=== PATIENT | female | born 1960 | race Asian ===

== ENCOUNTER 2025-04-14 20:59 | Inpatient (IN) | payer OTHER, SELFPAY ==
[2025-04-14 13:25] VITALS: BP 165/92
--- NOTE | 2025-04-14 14:35 | ED.GENMED ---
History of Present Illness
General
Chief Complaint: Cold/Flu/URI Symptoms
Source: patient and family (son at bedside)
Exam Limitations: none
Time Seen by Provider: 04/14/25 14:01
Nursing documentation reviewed up to this point in time: agreed with
History of Present Illness
History of Present Illness:
64 yo female with hx of kidney stones w lithotripsy, hysterectomy, cholecystectomy, partial thyroidectomy on Thyroxine, RA on Hydroxychloroquine, Gout on Allopurinol, and asthma uses Albuterol PRN and follow by [facility] [employer] [facility] at [facility].
Recent return from 3 weeks in [facility]. Return on 04/10. During stay developed sinus and chest congestion. Finished 5 days of Azomax 500 mg daily 2 weeks ago. No better on return home and went to [facility] ED same day, had neg Covid and Flu,
had CXR but was told it would be an 8 hour wait so she left.
Went to next day and put on Doxycycline 100 mg BID which she is still on and she is feeling no better.
Finally looked at 'my chart' and saw CXR results from 3 days ago and it said pneumonia.
Still with cough, felt feverish last night and vomited once last night. Otherwise appetite has been good and eating/drinking well.
Past History
Past History
ED Past Surgical History: Cholecystectomy, Gynecological, Orthopedic, Urological (lithotripsy) and Other (partial thyroidectomy)
Social History
Tobacco: Non-smoker
Alcohol: None
Personal:
Living: with family
Employment: Not employed
Review of Systems
Review of Systems
Allergies reviewed?: Yes
All Other Systems: ROS reviewed and negative except as documented in HPI and ROS
Constitutional: Reports fever; Denies chills
Respiratory: Reports cough and trouble breathing (mild)
Cardiac: Denies chest pain
ABD/GI: Denies abdominal pain, nausea, vomiting, diarrhea or anorexia
: Reports dysuria; Denies frequency, flank pain, incontinence, difficulty voiding or urgency
Musculoskeletal: Reports no symptoms
Skin: Reports no symptoms
Neurological: Reports no symptoms
Phy Exam
Physical Exam
Physical Exam:
GENERAL: No acute distress. A&Ox3.
CONSTITUTIONAL: Afebrile.
EYES: clear, conjunctivae normal
ENMT: moist mucus membranes, Pharynx nl
RESPIRATORY: Regular respirations, nonlabored, lungs with inspiratory crackles right side. No hypoxemia.
CARDIOVASCULAR: Regular rate and rhythm, no murmurs, no rubs.
GI: Soft, nontender, normal BS
MUSCULOSKELETAL: Moves with ease. Well perfused.
SKIN: Warm, dry, normal
PSYCH: Normal mood and affect. Well kept, interactive and appropriate
NEUROLOGIC: Awake, alert and oriented. No focal neurological deficits
Course
Orders/Labs/Results
Orders:
Orders
04/14/25 14:34
0.9% Sodium Chloride 1000 ml [Nss] 1,000 ml IV BOLUS
CR Chest - 2 Views Urgent
Comment:
Reason For Exam: cough, chest congestion
04/14/25 Dinner
Regular
04/14/25 15:02
Complete Blood Count/With Diff Urgent
Comprehensive Metabolic Panel Urgent
NT-proBNP Urgent
Comment: ADD ON
04/14/25 16:21
Add On- LAB Urgent
Tests Added?: Pro BNP
04/14/25 16:40
CT Chest With Iv Contrast Urgent
Comment:
Reason For Exam: Abnormal CXR
04/14/25 17:17
Urinalysis Reflex To Culture Urgent
Date Specimen was Collected: 04/14/25
Time Specimen was Collected: 17:15
04/14/25 19:52
Admit/Transfer Patient As Directed
Co-Sign Provider:
Level of Care: Inpatient admission
Assign to:: Medical/Surgical
Physician / Group: Adebamiro
Diagnosis: Pneumonia
Reason for Hospitalization: Pneumonia
Expected length of stay greater than two midnights?: Yes
ELOS- Estimated Length of Stay in days: 2
I certify the patient meets the requirements for IP care: Yes
04/14/25 19:53
PRN Pain Medication Management As Directed
May give lesser potent ordered pain med per pt: Yes
preference::
Protocol:: Medication orders for pain may be administered in a
manner that supports deferring to patient preference
when the pt is:
- Requesting an ordered lesser potent pain medication.
Least to most potent pain medications are defined
as: acetaminophen < NSAID < tramadol < opioids
(morphine, oxycodone, hydromorphone).
- Requesting a lesser dose of the same medication IF
ORDERED.
- Requesting a less intrusive route of administration
if both routes are prescribed by the provider (PO <
IV).
04/14/25 19:54
Code Status As Directed
Resuscitation Status: Full Code
04/14/25 20:13
Urinalysis Routine
04/14/25 20:24
COVID-19 Antigen Stat
Source: Nasal Swab
Influenza A+B Rapid Molecular Stat
KEO Source: Nasal Swab
Specimen Description:
04/14/25 20:26
Sputum Culture [Respiratory Culture/Gram Stain] Urgent
KEO Source: Sputum
Specimen Description:
Date Specimen was Collected: 04/14/25
Time Specimen was Collected: 20:24
04/14/25 22:09
Acid Fast Culture & Smear [Acid Fast Culture & Smear] DAILY
KEO Source: Sputum
Specimen Description:
Acetaminophen [Tylenol] 650 mg PO Q4HPRN PRN
Doxycycline Hyclate [Vibramycin] 100 mg 0.9% Sodium Chloride 250 ml [Nss] 250 ml IV Q12H
Guaifenesin/Dextromethorphan [Robitussin Dm] 5 ml PO Q4HPRN PRN
Hydroxychloroquine [Plaquenil] 200 mg PO BID
Ipratropium/Albuterol Sulfate [Duoneb] 3 ml INH R Q4HPRN PRN
Mag Hydrox/Al Hydrox/Simeth [Maalox] 15 ml PO QIDPRN PRN
Ondansetron Injectable [Zofran] 4 mg IV Q6HPRN PRN
Sodium Chloride 3% INH [Sodium Chloride 3% For Inhalation] 1 vial INH R Q4HPRN PRN
Induced Sputum [RESP] DAILY
Quantity: 1
04/14/25 22:09
PULMONARY CONSULT Routine
Consulting Provider: Luis Eduardo Foy
Was physician already notified: Yes
Legionella Urinary Antigen Routine
KEO Source: Urine
Specimen Description:
Respiratory Culture/Gram Stain Urgent
KEO Source: Sputum
Specimen Description:
Strep pneumoniae Antigen Routine
KEO Source: Urine
Specimen Description:
Activity As Directed
Activity Level: Out of Bed-Early Mobility
Intake/ Output As Directed
Frequency: Per unit guidelines
Precautions As Directed
Type of Precautions: Airborne
Vital Signs As Directed
Frequency: Per unit guidelines
Weight As Directed
Frequency: Once
Comment: on admission
Pulse Ox/cont/shift [RESP] Routine
Quantity: 1
Special Instructions: notify provider if SPO2 < 91%
DX Deep Vein Thrombosis Video Routine
04/15/25 Breakfast
NPO
Allow oral meds: Yes
Allow clear liquids: Sips of Clears
CESAR, IgG Reflex to HEp-2 [S] IN AM
Basic Metabolic Panel IN AM
CRP [C-Reactive Protein] IN AM
Complete Blood Count/No Diff IN AM
ESR [Erythrocyte Sed Rate] IN AM
HIV 4th Generation [HIV Combo] IN AM
Rheumatoid Factor [Rheumatoid Agglutinin] IN AM
04/15/25 08:00
Levothyroxine [Synthroid] 125 mcg PO DAILY
Multivitamin [Theragran] 1 tablet PO DAILY
04/15/25 18:00
Enoxaparin Sodium [Lovenox] 40 mg SC QPM
04/15/25 22:09
Acid Fast Culture & Smear [Acid Fast Culture & Smear] DAILY
KEO Source: Sputum
Specimen Description:
Induced Sputum [RESP] DAILY
Quantity: 1
04/16/25 22:09
Acid Fast Culture & Smear [Acid Fast Culture & Smear] DAILY
KEO Source: Sputum
Specimen Description:
Induced Sputum [RESP] DAILY
Quantity: 1
Abnormal Lab Results
04/14/25
15:02
Hgb 11.3 L g/dL
(12.0-16.0)
Hct 34.7 L %
(37.0-47.0)
MCV 79.4 L fL
(81.0-99.0)
MCH 25.9 L pg
(27.0-31.0)
MCHC 32.6 L g/dL
(33.0-37.0)
MPV 10.5 H fL
(7.4-10.4)
Chloride 110 H mmol/L
(98-107)
Glucose 109 H mg/dl
(70-99)
04/14/25 15:02
04/14/25 15:02
Vital Signs
Initial and Last Documented VS:
Initial Vital Signs
Temp Pulse Resp BP Pulse Ox
98.5 F 74 20 165/92 97
04/14/25 13:25 04/14/25 13:25 04/14/25 13:25 04/14/25 13:25 04/14/25 13:25
Last Documented Vital Signs
Temp Pulse Resp BP Pulse Ox
98.5 F 70 20 160/72 94
04/14/25 13:25 04/14/25 21:30 04/14/25 21:30 04/14/25 20:06 04/14/25 20:30
MDM/Problems Addressed
Differential Diagnosis Includes:
PNA, Interstitial pneumonitis, atypical infection
MDM/Problems Addressed:
64 yo female with hx of kidney stones w lithotripsy, hysterectomy, cholecystectomy, partial thyroidectomy on Thyroxine, RA on Hydroxychloroquine, Gout on Allopurinol, and asthma uses Albuterol PRN and follow by [employer] at [facility].
Recent return from 3 weeks in [facility]. Return on 04/10. During stay developed sinus and chest congestion. Finished 5 days of Azomax 500 mg daily 2 weeks ago. No better on return home and went to [facility] ED same day, had neg Covid and Flu,
had CXR but was told it would be an 8 hour wait so she left.
Went to next day and put on Doxycycline 100 mg BID which she is still on and she is feeling no better.
Finally looked at 'my chart' and saw CXR results from 3 days ago and it said pneumonia.
Still with cough, felt feverish last night and vomited once last night. Otherwise appetite has been good and eating/drinking well.
Temp 99.4 for this examiner, NAD
Lungs with crackles right side.
No hypoxemia
3:40 PM:
CBC normal
CMP normal
Chest x-ray: Radiology report read: IMPRESSION:
1. SEVERE NEARLY SYMMETRIC RETICULONODULAR INTERSTITIAL DISEASE throughout the upper and lower lobes of both lungs with associated mild bilateral lung volume loss. Diagnostic possibilities are (1) an INFLAMMATORY INTERSTITIAL PNEUMONITIS (possibly
sarcoidosis), (2) atypical infection, (3) connective tissue disease, (4) lymphangitic carcinomatosis, or (5) less likely interstitial pulmonary edema.
2. Mild cardiomegaly.
3. Moderate tortuosity of the thoracic aorta.
Will obtain Chest CT w IV contrast and admit.
7:00 PM:
Chest CT with IV contrast radiology report read
Hospitalist notified of admission.
*Pulse Oximetry
SaO2: 97
Oxygen Mode of Delivery: Room air
Patient hypoxic: no
*Critical Care Note
Total Time (30-74mins, 75-104mins- exclusive of procedures): Not Applicable
ED Attending Note
-
Portions of this chart may have been created with voice recognition software.� Occasional wrong word or��sound alike� substitutions may have occurred due to the inherent limitations of voice recognition software.
Discharge Plan
Departure
Patient Disposition: Admit
Date of Disposition: 04/14/25
Time of Disposition: 16:17
Admit to: Med/Surg
Presentation/result/management discussed w/ accepting MD/DO: Hospitalist
Condition: Fair
Discharge Problem:
Acute interstitial pneumonitis
Interventions
Interventions:
*Risk Screen - Suicide Last Done: 04/14/25 13:25
*General Assessment Last Done: 04/14/25 15:46
*Neglect/Abuse Screening Last Done: 04/14/25 13:25
*ED- Fall Risk Assessment Last Done: 04/14/25 16:45
*ED COVID-19 Vaccine History Last Done: 04/14/25 16:45
ED- Pulmonary Assessment Last Done: 04/14/25 16:45
[2025-04-14] MEDS: NSS 1000 IV (15:04)
[2025-04-14 15:14] LABS: % Basophils 0.5 % (0-2); % Eosinophils 3.2 % (0-6); % Immature Granulocytes 0.3 % (0-0.5); % Lymphocytes 36.3 % (20.5-51.1); % Monocytes 7.9 % (1.7-9.3); % Neutrophils 51.8 % (42.2-75.2); Absolute Eosinophils 0.2 10^3/uL (0-0.7); Absolute Lymphocytes 2.8 10^3/uL (1.2-3.4); Absolute Monocytes 0.6 10^3/uL (0.1-0.6); Absolute Neutrophils 3.9 10^3/uL (1.4-6.5); Hematocrit 34.7 % (37.0-47.0); Hemoglobin 11.3 g/dL (12.0-16.0); Mean Corp Hgb Conc. 32.6 g/dL (33.0-37.0); Mean Corpuscular Hgb 25.9 pg (27.0-31.0); Mean Corpuscular Volume 79.4 fL (81.0-99.0); Mean Platelet Volume 10.5 fL (7.4-10.4); Nucleated Red Blood Cells % 0 %; Platelet Count 290 10^3/uL (130-400); Red Blood Cell Count 4.37 10^6/uL (4.20-5.40); Red Cell Dist. Width 12.8 % (11.5-14.5); White Blood Cell Count 7.6 10^3/uL (4.8-10.8)
[2025-04-14 15:43] LABS: ALT (SGPT) 22 U/L (0-35); AST (SGOT) 32 U/L (14-36); Albumin 3.7 g/dl (3.5-5.0); Alkaline Phosphatase 71 U/L (38-126); Blood Urea Nitrogen 8 mg/dl (7-17); Calcium 8.7 mg/dl (8.4-10.2); Carbon Dioxide 25 mmol/L (22-30); Chloride 110 mmol/L (98-107); Glucose 109 mg/dl (70-99); Potassium 3.6 mmol/L (3.5-5.1); Sodium 140 mmol/L (135-145); Total Bilirubin 0.5 mg/dl (0.2-1.3); Total Protein 6.5 g/dl (6.3-8.2); eGFR > 60.00
[2025-04-14 17:11] LABS: NT-proBNP 73.9 pg/ml
[2025-04-14 17:25] LABS: Urine Albumin Negative (Neg - Trace); Urine Bilirubin Negative (Negative); Urine Character Clear (Clear); Urine Color Yellow; Urine Glucose Negative (Negative); Urine Ketone Negative (Negative); Urine Leukocyte Negative (Negative); Urine Nitrite Negative (Negative); Urine Occult Blood Negative (Negative); Urine Urobilinogen Negative (Neg - 1+); Urine pH 6.5 (5.0-9.0)
--- NOTE | 2025-04-14 19:28 | HPS.HSE ---
Family Physician
-
Family Physician: Manny Orellana
Chief Complaint
-
Cough and shortness of breath
History of Present Illness
This is a 64-year-old who has a past medical history significant for RA, hypothyroid, hypertension, gout, nephrolithiasis, chronic upper airway cough syndrome not previously specified (normal PFTs without obstructive or restrictive pattern in 2020)
who presents to the emergency department with ongoing cough syndrome that she developed after traveling to [facility] about 3 weeks ago.
Patient reported that she developed the illness about 1 week into stay and started [place] She reported that she was coughing, it was productive of whitish to brownish phlegm, associated with pleuritic chest discomfort. She reported
chills. She did not have documented fever. She denied having any sore throat or runny nose. She did state that there were multiple members of the gathering at the time that had similar symptoms. She denied any GI component. She took 5 days of
azithromycin while she was in [facility]. She said there was no improvement in her symptoms. She came back to [place] 7 days after completing the azithromycin and went to urgent care. She again was diagnosed with pneumonia urgent care and
was started on doxycycline yesterday. She says she did develop nausea and vomiting after taking the doxycycline. She has not had fever since she been here. She has not required supplemental oxygen. The family members will travel with her no
longer having any symptoms.
Patient denies any prior history of pneumonias, fungal infection, asthma or COPD. She does have rheumatoid arthritis for several years but has been well-controlled on Plaquenil. She denies any recent rash. She does have a chronic ankle effusions
bilaterally which is unchanged.
In the emergency department she was afebrile, blood pressure was 160/92 with a pulse rate of 69 and she was satting 96% on room air. Respiratory rate was 16.
CBC was unremarkable. Electrolytes BUN/creatinine were all normal.
Chest x-ray shows severe symmetric reticular�nodular interstitial disease throughout the upper and lower lobes of both lungs with associated mild bilateral lung volume loss. Diagnostic possibilities are (1) an INFLAMMATORY INTERSTITIAL PNEUMONITIS
(possibly sarcoidosis), (2) atypical infection, (3) connective tissue disease, (4) lymphangitic carcinomatosis, or (5) less likely interstitial pulmonary edema.
CT Chest
MODERATE to SEVERE INFLAMMATORY INTERSTITIAL PNEUMONITIS involving the periphery of both lungs in a symmetric distribution - possibly nonspecific interstitial pneumonitis (NSIP). Atypical infection or interstitial pulmonary edema are considered
unlikely.
2. Moderate subcarinal lymphadenopathy.
3. Chronic granulomatous disease infection.
4. Small hiatal hernia.
5. Previous left hemithyroidectomy.
Medical History
Past Medical History
Past Medical History: Reports GERD, HTN, Hypothyroidism and Other (Upper airway cough syndrome with otherwise not specified)
Additional Past Medical History:
Rheumatoid arthritis
Gout
Nephrolithiasis
Past Surgical History: Reports Cholecystectomy, Orthopedic (Knee replacement) and Other (Left John-thyroidectomy)
Social History
Tobacco: Non-smoker
Alcohol: None
Drug: None
Living: With Family
Employment: Not Employed
Family History
Family History: Not pertinent
Allergies / Home Medications
Allergies reflects when Allergies were last updated in [facility].
Home Medications with original date entered in [facility]
Allergy/Medication List:
Allergies
Allergy/AdvReac Type Severity Reaction Status Date / Time
No Known Allergies Allergy Unverified 04/14/25 13:25
Home Medications
acetaminophen 500 mg tablet (Tylenol Extra Strength) 500 mg PO BIDPRN PRN mild pain 04/14/25
ascorbic acid (vitamin C) 1,000 mg tablet (Vitamin C) 1,000 mg PO DAILY 04/14/25
benzonatate 100 mg capsule 100 mg PO TID PRN cough 04/14/25
cholecalciferol (vitamin D3) 125 mcg (5,000 unit) capsule 125 mcg PO DAILY 04/14/25
doxycycline hyclate 100 mg capsule 100 mg PO BID 04/14/25
hydroxychloroquine 200 mg tablet 200 mg PO BID 04/14/25
levothyroxine 125 mcg tablet 125 mcg PO DAILY 04/14/25
psyllium husk 1 tsp PO DAILYPRN PRN constipation 04/14/25
therapeutic multivitamin 1 tab PO DAILY 04/14/25
Review of Systems
-
History Source: Patient and Family
Constitutional: Reports No Symptoms
EENT: Reports No Symptoms
Respiratory: Reports Cough and Trouble Breathing; Denies Hemoptysis
Cardiac: Reports No Symptoms
Abdomen/GI: Reports No Symptoms
: Reports No Symptoms
Musculoskeletal: Reports No Symptoms
Skin: Reports No Symptoms
Neurological: Reports No Symptoms
Endocrine: Reports No Symptoms
Hematologic/Lymphatic: Reports No Symptoms
Psych: Reports No Symptoms
Physical Exam
Vital Signs
Vital Signs
Temp Pulse Resp BP Pulse Ox
98.5 F 69 16 165/92 96
04/14/25 13:25 04/14/25 15:15 04/14/25 15:15 04/14/25 13:25 04/14/25 15:15
Physical Exam
General: Well Developed, Well Nourished and No Apparent Distress
HEENT: NormoCephalic, Moist mucous membranes and Atraumatic
Respiratory: Clear
Cardiac: S1/S2 and Regular Rhythm; No Murmur or Rub
GI: Soft, Non Tender, Non Distended and Normal Bowel Sounds; No Organomegaly
Rectal: Deferred by Provider
Musculoskeletal: No Clubbing, No Cyanosis and No Edema
Skin: No Rash
Neuro: Nonfocal/grossly intact
Psych: Calm
Laboratory Results
-
04/14/25 15:02
04/14/25 15:02
Laboratory Results
Total Bilirubin 0.5 mg/dl (0.2-1.3) 04/14/25 15:02
AST 32 U/L (14-36) 04/14/25 15:02
ALT 22 U/L (0-35) 04/14/25 15:02
Alkaline Phosphatase 71 U/L (38-126) 04/14/25 15:02
Data Reviewed
-
Diagnostic Radiology: Image Personally Visualized and interpreted and Report Reviewed by me
CT Scan: Report Reviewed by me
Medical Tests (Nuc Med, Echo, EKG etc): Image Personally Visualized and interpreted
Old Records: Reviewed
Impression/Plan
-
IMPRESSION:
64 y.o female with h/o RA, hypothyroid, HTN presenting with approximately 2 1/2 weeks of cough syndrome productive of clear to brown phlegm w/o hemoptysis and associated with SOB. She fell ill while travelling in [facility] on pilgrimage with a
group who had multiple members affected. No fevers or chills. No improvement despite 5 days of azithromycin in [facility]. Started on doxycycline by urgent care yesterday. No fever, here, no leukocytosis CBC unremarkable. Labs otherwise
normal. Xray with a bilateral reticulonodular pattern concerning for interstitial pneumonitis.
PLAN:
Pneumonitis - Atypical pneumonia, vs interstitial pneumonitis. Patient has an apparent chronic pulmonary disease for which she has seen pulmonary in the past though she had no restrictive or obstructive disease at on PFTs at the time and was
diagnosed with a UACS/GERD. She has history of RA, possible thyroiditis s/p thyroidectomy suggestive of CTD. No particular findings c/w sarcoid. No history of exposures.
- admit to med/surg
- airborne isolation for now
- Induced sputum for AFB, possible bronchial wash for acid fast smear/culture, fungal stain per pulm
- HIV
- will check inflammatory panel including RF, CESAR, ESR, CRP
- continue with iv doxycycline for now
- supportive measures, no steroids for now
- pulmonary consult
RA
- continue plaquinel
- tests as above
Hypothyroid
- levothyroxine
DVT PPX - lovenox sq
Code status - Full Code
[2025-04-14 20:06] VITALS: BP 160/72
[2025-04-14 20:50] LABS: COVID-19 Antigen Negative (Negative)
[2025-04-14 22:22] VITALS: BP 133/79
[2025-04-14 22:23] VITALS: BMI 34.3
[2025-04-14] MEDS: PLAQUENIL 200 MG PO (22:26)
[2025-04-14] MEDS: VIBRAMYCIN 260 MG IV (22:26)
[2025-04-14] MEDS: ROBITUSSIN DM 5 ML PO (22:33)
[2025-04-15 06:00] VITALS: BMI 34.3
[2025-04-15] MEDS: SYNTHROID 125 MCG PO (06:10)
[2025-04-15 06:46] LABS: Hematocrit 36.2 % (37.0-47.0); Hemoglobin 11.9 g/dL (12.0-16.0); Mean Corp Hgb Conc. 32.9 g/dL (33.0-37.0); Mean Corpuscular Hgb 25.9 pg (27.0-31.0); Mean Corpuscular Volume 78.9 fL (81.0-99.0); Mean Platelet Volume 10.5 fL (7.4-10.4); Platelet Count 275 10^3/uL (130-400); Red Blood Cell Count 4.59 10^6/uL (4.20-5.40); White Blood Cell Count 6.4 10^3/uL (4.8-10.8)
[2025-04-15 06:55] LABS: Erythrocyte Sed Rate 62 mm/hour (0-20)
[2025-04-15 07:00] VITALS: BP 132/53
--- NOTE | 2025-04-15 07:00 | CON.PUL ---
Consultation
Consultation Request
Date/Time Consultation Requested: 04/14/2025
Date/Time Consultation Performed: 04/15/2025
Requesting Provider: Candie Mayes
Performing Provider: Cydney Romero
Reason for Consultation: Cough
Medical History
-
Chief Complaint: Cough, dyspnea
History of Present Illness:
Patient is a very pleasant 64-year-old female who presents to hospital for close to 3 weeks long respiratory illness. Patient was in [place] couple of weeks ago for [place], and developed runny nose sore throat and respiratory symptoms which
she also reports that her family members had as well. Others people seem to have improved however patient has persistent symptoms. She received a course of azithromycin without success. She was recently evaluated in urgent care and was started on
doxycycline and patient developed GI upset and nausea vomiting with it. She presented to the emergency room yesterday and had a chest x-ray performed followed by a CT chest which was suggestive of bilateral interstitial infiltrates suggestive of
NSIP versus atypical infection. Pulmonary embolism was ruled out. Pulmonary consult was requested for further input.
Patient reports subjective fever at home. Cough is productive mostly clear and occasionally vasquez-yellow expectoration. No reported hemoptysis. No reported pleuritic discomfort however patient feels that her ribs are sore from constant coughing.
There is no difference in severity of cough between day or night versus change in temperature lately. Patient reports feeling febrile at home. No reported night sweats or palpable lymphadenopathy. Patient does not report having had similar
episode of this severity in the past. Currently her rheumatoid arthritis does not seem to have exacerbation and she does not report any active joint swelling or pain. No reported rash. No odynophagia.
Social history. Patient has never smoked. She grew up in [place] and moved to [place] about 25 years ago. No reported known history of tuberculosis exposure. 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
many years ago, details not available. No reported marijuana, vaping, e-cigarettes or tobacco use.
Past Medical History
Past Medical History: Reports GERD, HTN, Hypothyroidism and Other (Upper airway cough syndrome with otherwise not specified)
Additional Past Medical History:
Rheumatoid arthritis
Gout
Nephrolithiasis
Past Surgical History: Reports Cholecystectomy, Orthopedic (Knee replacement) and Other (Left John-thyroidectomy)
Social History
Tobacco: Non-smoker
Alcohol: None
Drug: None
Living: With Family
Employment: Not Employed
Family History
Family History: Not pertinent
Allergies / Home Medications
Allergies reflects when Allergies were last updated in [facility].
Home Medications with original date entered in [facility]
Allergies / Home Medications
Allergies
Allergy/AdvReac Type Severity Reaction Status Date / Time
No Known Allergies Allergy Unverified 04/14/25 13:25
Home Medications
�Medication �Instructions �Recorded �Confirmed �Last Taken �Type
acetaminophen 500 mg tablet 500 mg PO BIDPRN PRN mild pain 04/14/25 04/14/25 04/13/25 History
(Tylenol Extra Strength)
ascorbic acid (vitamin C) 1,000 mg 1,000 mg PO DAILY 04/14/25 04/14/25 04/13/25 History
tablet (Vitamin C)
benzonatate 100 mg capsule 100 mg PO TID PRN cough 04/14/25 04/14/25 04/13/25 History
cholecalciferol (vitamin D3) 125 125 mcg PO DAILY 04/14/25 04/14/25 Unknown History
mcg (5,000 unit) capsule
doxycycline hyclate 100 mg capsule 100 mg PO BID 04/14/25 04/14/25 04/14/25 History
hydroxychloroquine 200 mg tablet 200 mg PO BID 04/14/25 04/14/25 04/14/25 History
levothyroxine 125 mcg tablet 125 mcg PO DAILY 04/14/25 04/14/25 04/14/25 History
psyllium husk 1 tsp PO DAILYPRN PRN constipation 04/14/25 04/14/25 2 Weeks Ago History
~03/31/25
therapeutic multivitamin 1 tab PO DAILY 04/14/25 04/14/25 Unknown History
Review of Systems
-
Hematologic/Lymphatic: Other (All 14 systems reviewed and negative except as stated above in the history of present illness.)
Vitals / Labs / Diagnostic Testing
Vital Signs
Temp Pulse Resp BP Pulse Ox
98.1 F 71 20 133/79 97
04/14/25 22:22 04/14/25 22:22 04/14/25 22:22 04/14/25 22:22 04/15/25 05:02
Lab Data
04/15/25 06:32
Microbiology
04/14/25 20:24 Nasal Swab Influenza Types A & B (COURT) - Final
Negative for Influenza A & B, NAAT
Negative results must be combined with clinical observations
and patient history.
Nucleic Acid Amplification test (NAAT)performed on the
[employer] NOW platform.
Diagnostic Testing:
Physical Exam
-
HEENT: Normocephalic
Cardiovascular: S1/S2
Respiratory: Clear and Other (Bilateral end expiratory rhonchi/minimal wheezing. Tends to cough on deep inspiration.)
GI: Soft
Neurology: Awake and Alert
General: Comfortable
Assessment
-
#1. Bilateral interstitial infiltrates concerning for atypical infection versus RA-ILD
- Bilateral groundglass opacities noted on imaging pattern suggestive of NSIP which typically tends to be related to connective tissue diseases, drug-induced, occasionally and atypical infections.
- Relative rapidity of symptoms and other family members being sick points more towards infectious etiology. Also reported low-grade fever at home.
- Continue doxycycline for now, follow-up on blood cultures, sputum cultures. WBC count is normal. No large area of consolidation noted. ID consultation for further recommendation regarding antimicrobials
- Await HIV, connective tissue disease panel including RA, CESAR. ESR elevated at 62, CRP elevated at 33.8. Urinalysis without any proteinuria or hematuria
- If infection is ruled out, we will consider immunosuppression for suspected underlying rheumatoid arthritis related ILD, NSIP. If workup stays negative, will consider bronchoscopy with BAL.
#3. Hyperactive airway disease
- Patient appears to have end expiratory rhonchi. Reports uses of albuterol at home and previous courses of prednisone.
- Suspect patient might have underlying hyperreactive airway disease related to acute infection versus inflammation
- Start DuoNeb 4 times daily scheduled, add budesonide twice a day. Hold off oral or IV steroids for now
- Continue doxycycline
#4. Mediastinal lymphadenopathy with history of latent tuberculosis
- Patient grew up in [place]. Does not report any known exposure to active tuberculosis
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
- The calcified lymphadenopathy noted is likely sequela of prior exposure. Patient does not seem to have any upper lobe disease typical for Mycobacterium.
- Also bilateral interstitial pattern is not typical for MTB
- Await disease recommendations. Await AFB.
#5. H/o RA
- Reportedly has been on Plaquenil lately and has required short courses of prednisone many times in the past due to flare which typically has joint involvement.
- No known history of RA ILD however I do not have any previous imaging to compare if some of these changes are longstanding versus acute
- As outpatient, patient will need pulmonary function testing, 6-minute walk test etc. once she recovers from acute illness
- If infectious workup stays negative, will start patient on steroids for suspected RA ILD
Other medical diagnoses:
- Hypothyroidism
- HTN
- GERD
- H/o upper airway cough syndrome
Total time spent on this consultation/encounter ___82_ minutes which includes review of history, physical exam, medications, laboratory data, personal review of imaging, extensive review of outpatient records, discussion with care team and
respiratory therapy.
Data:
CT Chest 03/2025: 1. MODERATE to SEVERE INFLAMMATORY INTERSTITIAL PNEUMONITIS involving the periphery of both lungs in a symmetric distribution - possibly nonspecific interstitial pneumonitis (NSIP). Atypical infection or interstitial pulmonary
edema are considered unlikely.
2. Moderate subcarinal lymphadenopathy.
3. Chronic granulomatous disease infection.
4. Small hiatal hernia.
5. Previous left hemithyroidectomy.
[2025-04-15 07:08] LABS: Blood Urea Nitrogen 5 mg/dl (7-17); Calcium 8.5 mg/dl (8.4-10.2); Carbon Dioxide 30 mmol/L (22-30); Chloride 109 mmol/L (98-107); Estimated Creatinine Clearance 96 ml/min; Glucose 105 mg/dl (70-99); Potassium 3.4 mmol/L (3.5-5.1); Sodium 143 mmol/L (135-145); eGFR > 60.00
[2025-04-15] MEDS: THERAGRAN 1 TABLET PO (09:02)
[2025-04-15] MEDS: PLAQUENIL 200 MG PO ×2 (09:02→21:00)
[2025-04-15] MEDS: VIBRAMYCIN 260 MG IV (09:02)
[2025-04-15] MEDS: KCL 40 MEQ PO (09:04)
[2025-04-15 09:18] LABS: HIV Combo Negative (Negative)
--- NOTE | 2025-04-15 11:48 | W.PN.HOSP.TC ---
Today's Communication/Plan
-
Assessment / Plan
Assessment / Plan
NAD
Scleral Anicteric
MMM
No JVD
CTABL
RRR, S1/S2
Soft, NT, ND, BS+
Warm, Dry
AAOx3
Calm
Pneumonitis unclear if there is a infectious component however concern for likely ILD
For now continue doxycycline
Provide DuoNeb
Follow-up on sputum culture
Follow-up on AFB
Pulmonary following
Can consider bronc with BAL plus minus EBUS
Hypothyroidism
Continue levothyroxine
RA
Continue Plaquenil
Anticipated Discharge: > 48 hours
Subjective/Interval History
-
Date of Service: April 15, 2025
Seen and examined. No new complaints. No acute overnight events.
Continues to have a cough
Objective Data
-
Labs:
Laboratory Results
04/15/25
06:32
WBC 6.4
Hgb 11.9 L
Hct 36.2 L
Plt Count 275
Sodium 143
Potassium 3.4 L
Chloride 109 H
Carbon Dioxide 30
BUN 5 L
Creatinine 0.6
Glucose 105 H
Calcium 8.5
Vital Signs:
Vital Signs
Temp Pulse Resp BP Pulse Ox
98.5 F 66 16 132/53 96
04/15/25 07:00 04/15/25 07:00 04/15/25 07:00 04/15/25 07:00 04/15/25 10:00
I&O
04/14/25 04/15/25 04/16/25
06:59 06:59 06:59
Intake Total 240 / 240
Balance 240 / 240
[2025-04-15 13:06] LABS: Urine Albumin Negative (Neg - Trace); Urine Bilirubin Negative (Negative); Urine Character Clear (Clear); Urine Color Yellow; Urine Glucose Negative (Negative); Urine Ketone Negative (Negative); Urine Leukocyte Negative (Negative); Urine Nitrite Negative (Negative); Urine Occult Blood Negative (Negative); Urine Urobilinogen Negative (Neg - 1+)
--- NOTE | 2025-04-15 13:47 | CM ---
Initial assessment completed with patient with in room. Patient lives with her and son in a 2 story home plus basement, B/B on 1st floor, 1 step to enter. 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
distances- maneuvers. Patient has a SPC, RW and wheelchair from previous knee surgeries. No in-home services. No HC-POA. Received consult for AD information. Offered and declined. PCP is Dr. Manny Orellana. Pharmacy is [facility] in [facility]
[place]. Discharge POC: Home w no needs vs home with HH RN.
--- NOTE | 2025-04-15 14:58 | CON.ID ---
Consultation
-
Date/Time Consultation Requested: April 15, 2025 0802
Date/Time Consultation Performed: April 15, 2025 1500
Requesting Provider: Dr. Cydney Romero
Performing Provider: Dr. Maryann Romero
Reason for Consultation: Cough, recent travel
Chief Complaint / Past History
Chief Complaint
Cough
History of Present Illness
64-year-old female with history of RA on Plaquenil, history of chronic intermittent upper airway cough syndrome NOS who presented to the ER April 14 due to 1 and half week history of cough. She and her family recently traveled to [facility] [place] for pilgrimage 3 weeks ago. She was there for 2 weeks. There were millions of people there. Pilgrimage took place both indoors and outdoors. She reports not wearing a mask consistently. She did receive her meningococcal and
pneumococcal vaccine prior to travel. She spent the whole 2 weeks in prayer. She did not go sightseeing. No mosquito nor insect exposure. This is her first pilgrimage trip. Everybody doing well in the beginning of the [place]. However 1-1/2 weeks
later she and multiple people started coughing. Cough productive of yellowish-green sputum. She received 5 days of azithromycin. She did not improve. She reports that her section of the [place] consisted of people from the [place], [place], and [place].
During her flight back to the , she had significant sinus pressure, rhinorrhea with clear output, and headache. She reports subjective fevers and chills. Positive shortness of breath. Mild myalgias. No nausea vomit abdominal pain. No
diarrhea. Her rheumatoid arthritis is stable without flare. Her family members symptoms resolved. Patient continues to have persistent cough. She went to urgent care on April 13 and was prescribed doxycycline. However she developed nausea and
vomiting after taking the doxycycline. She therefore came to the ER yesterday. Afebrile so far. White count normal. LFTs normal. BNP normal.UA negative. SARS negative. Flu negative. She is unable to produce sputum. Sputum specimen submitted
contaminated with oral luis. She is currently on IV doxycycline without relief. She is originally from [facility] and came [place] the [place] 25 years ago. She reports initial PPD was negative upon arrival. 10 years ago her PPD converted to positive and
she was treated with 4 to 6 months for latent tuberculosis. Last travel back to [facility] was 2 years ago. She denies night sweats or weight loss.
Past History
Additional Past Medical History:
Rheumatoid arthritis on Plaquenil
Hypertension
Chronic upper airway cough syndrome NOS
Gout
Hypothyroidism
Nephrolithiasis
Latent TB treated x 4- 6 months 2014
Thyroidectomy
Cholecystectomy
Knee replacement
Allergy History:
No Known Allergies Allergy (Unverified 04/14/25 13:25)
Medications Reviewed: Yes
Current Antibiotics:
Doxycycline
Social History
Tobacco: Non-Smoker
Alcohol: None
Drug: None
Living: With Family
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
Review of Systems
Review of Systems
General: Fever, Chills and Change in Appetite
HEENT: Negative Sinus Problems or Headache
Respiratory: Dyspnea and Cough; Negative Hemoptysis
Genital / Urological: Negative Dysuria or Flank Pain
Endocrine: Weakness
Musculoskeletal: Negative Joint Pain
Skin / Hair / Nails: Negative Rash
Neurological: Negative Dizziness
All systems: All other systems were reviewed and were negative
Vital Signs
Temp Pulse Resp BP Pulse Ox
98.5 F 66 16 132/53 96
04/15/25 07:00 04/15/25 07:00 04/15/25 07:00 04/15/25 07:00 04/15/25 10:00
Physical Exam
Physical Exam
Constitutional: No Acute Distress and Comfortable
Head: Other (No frontal or max or sinus tenderness)
Eyes: No Conjunctival Hemorrhage and Sclera Anicteric
Pharynx: Benign
Cardiovascular: Regular Rate and S1/S2
Pulmonary: Clear
Gastrointestinal: Soft, Non Tender, Non Distended and Normal Bowel Sounds
Genito-Urinary: Negative CVA Tenderness
Extremities: Negative Edema
Musculoskeletal: Negative Joint Effusion or Spinal Tenderness
Skin: Negative Rash
Neurological: AO x 3
Lab / Diagnostic Study Results
04/15/25 06:32
04/15/25 06:32
Abs Immat Gran (auto) 0.0 10^3/uL (0-0.05) 04/14/25 15:02
Absolute Neuts (auto) 3.9 10^3/uL (1.4-6.5) 04/14/25 15:02
Absolute Lymphs (auto) 2.8 10^3/uL (1.2-3.4) 04/14/25 15:02
Absolute Monos (auto) 0.6 10^3/uL (0.1-0.6) 04/14/25 15:02
Absolute Basos (auto) 0.0 10^3/uL (0-0.2) 04/14/25 15:02
Immature Gran % 0.3 % (0-0.5) 04/14/25 15:02
Neutrophils % 51.8 % (42.2-75.2) 04/14/25 15:02
Lymphocytes % 36.3 % (20.5-51.1) 04/14/25 15:02
Monocytes % 7.9 % (1.7-9.3) 04/14/25 15:02
Eosinophils % 3.2 % (0-6) 04/14/25 15:02
Basophils % 0.5 % (0-2) 04/14/25 15:02
ESR 62 mm/hour (0-20) H 04/15/25 06:32
C-Reactive Protein 33.80 mg/L (0.0-10.00) H 04/15/25 06:32
Microbiology Results
Micro:
04/14/25 12:40 Respiratory Culture - Pending
Sputum Gram Stain - Preliminary
04/15/25 13:49 Respiratory Virus Culture - Pending
Nasalpharynx
04/14/25 20:26 Respiratory Culture - Final
Sputum Gram Stain - Final
04/14/25 20:24 Influenza Types A & B (COURT) - Final
Nasal Swab Negative for Influenza A & B, NAAT
Negative results must be combined with clinical observations
and patient history.
Nucleic Acid Amplification test (NAAT)performed on the
[employer] NOW platform.
Chest CT: MODERATE to SEVERE INFLAMMATORY INTERSTITIAL PNEUMONITIS involving the periphery of both lungs in a symmetric distribution - possibly nonspecific interstitial pneumonitis (NSIP). Atypical infection or interstitial pulmonary edema
are considered unlikely.mModerate subcarinal lymphadenopathy. Chronic granulomatous disease infection.
04/14/25 CXR: SEVERE NEARLY SYMMETRIC RETICULONODULAR INTERSTITIAL DISEASE throughout the upper and lower lobes of both lungs with associated mild bilateral lung volume loss. Diagnostic possibilities are (1) an INFLAMMATORY INTERSTITIAL PNEUMONITIS
(possibly sarcoidosis), (2) atypical infection, (3) connective tissue disease, (4) lymphangitic carcinomatosis, or (5) less likely interstitial pulmonary edema.
Assessment / Plan
# Mod to severe interstitial pneumonitis b/l lungs peripherally
# Cough x 1.5 weeks, subjected fevers
# Recent travel to [facility] for Hajj 3 weeks ago (2 week stay)
- MERS CoV (middle-east resp syndrome) is high in the differential dx given recent pilgrimage in [facility].
[id number] transmission can occur.
Monitor temps.
Testing for MERS CoV PCR (from DENTAL INSTRUMENT MAKER/lower resp tract) is not available in our health system.
If no source to explain her respiratory symptoms and chest CT findings, I will discuss case with CDC for send out testing. May need bronch.
- Continue airborne precaution for now.
- COVID/FLU neg.
- HIV screen negative.
- Follow repeat sputum culture.
- Ordered respiratory viral PCR panel.
- Start empiric meropenem. DC doxycycline.
- Check procalcitonin level in a.m. If negative DC antibiotic.
- Follow clinically
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
Rheumatoid arthritis on Plaquenil
Hypertension
Chronic upper airway cough syndrome NOS
Gout
Hypothyroidism
Nephrolithiasis
Latent TB treated x 4- 6 months 2014
Thyroidectomy
Cholecystectomy
Knee replacement
Care Review
Plan reviewed with: Physician (Dr. Romero)
[2025-04-15 15:00] VITALS: BP 134/62
[2025-04-15] MEDS: DUONEB 3 ML INH ×2 (15:29→19:48)
[2025-04-15] MEDS: STERILE WATER FOR INJECTION 10 ML IV ×2 (17:18→23:24)
[2025-04-15] MEDS: LOVENOX 40 MG SC (17:46)
[2025-04-15] MEDS: MERREM 500 MG IV (17:47)
[2025-04-15] MEDS: MERREM IV (17:47)
[2025-04-15] MEDS: ROBITUSSIN DM 5 ML PO ×2 (17:48→21:55)
[2025-04-15] MEDS: PULMICORT 0.5 MG INH (19:48)
[2025-04-15] MEDS: TYLENOL 650 MG PO (21:44)
[2025-04-15 23:20] VITALS: BP 110/40
[2025-04-16] MEDS: MERREM 500 MG IV ×2 (05:14→06:55)
[2025-04-16] MEDS: STERILE WATER FOR INJECTION 10 ML IV (05:15)
[2025-04-16] MEDS: SYNTHROID 125 MCG PO (05:15)
[2025-04-16 06:12] LABS: Procalcitonin < 0.05 ng/ml (0.0-0.25)
[2025-04-16 07:05] VITALS: BP 133/65
[2025-04-16] MEDS: PULMICORT 0.5 MG INH ×2 (08:23→18:19)
[2025-04-16] MEDS: DUONEB 3 ML INH ×4 (08:23→18:19)
[2025-04-16] MEDS: THERAGRAN 1 TABLET PO (09:07)
[2025-04-16] MEDS: PLAQUENIL 200 MG PO ×2 (09:07→20:10)
--- NOTE | 2025-04-16 11:36 | W.PN.HOSP.TC ---
Today's Communication/Plan
-
Assessment / Plan
Assessment / Plan
NAD
Scleral Anicteric
MMM
No JVD
CTABL
RRR, S1/S2
Soft, NT, ND, BS+
Warm, Dry
AAOx3
Calm
Pneumonitis unclear if there is a infectious component however concern for likely ILD
ID dc'ed doxy.
ID started Starr
Procal ordered, if ne then DC atb
Provide DuoNeb
Follow-up on sputum culture
Follow-up on AFB
Airborne precautions
Extended viral panel pending
Pulmonary following
Can consider bronc with BAL plus minus EBUS
HIV neg
Hypothyroidism
Continue levothyroxine
RA
Continue Plaquenil
Anticipated Discharge: > 48 hours
Subjective/Interval History
-
Date of Service: April 16, 2025
seen and examined. no new complaints. no acute ovenriht events
feeling better
Objective Data
-
Vital Signs:
Vital Signs
Temp Pulse Resp BP Pulse Ox
97.8 F 76 16 133/65 98
04/16/25 07:05 04/16/25 11:30 04/16/25 11:30 04/16/25 07:05 04/16/25 11:30
I&O
04/15/25 04/16/25 04/17/25
06:59 06:59 06:59
Intake Total 240 / 240 880 / 880
Balance 240 / 240 880 / 880
--- NOTE | 2025-04-16 11:38 | W.PN.ID1 ---
Addendum entered and electronically signed by Maryann Romero MD 04/16/25 14:45:
DC meropenem.
Original Note:
Date of Service
Date of Service: April 16, 2025
Today's Communication
Observe off abx.
Await lab studies.
Assessment / Plan
# Mod to severe interstitial pneumonitis b/l lungs peripherally
# Cough x 1.5 weeks, subjected fevers
# Recent travel to [facility] for Hajj 3 weeks ago (2 week stay)
- MERS CoV (middle-east resp syndrome) is high in the differential dx given recent pilgrimage in [facility].
Hefhdn-er-[id number] transmission can occur.
Monitor temps.
Testing for MERS CoV PCR (from GRANITE SANDBLASTER APPRENTICE/lower resp tract) is not available in our health system.
If no source to explain her respiratory symptoms and chest CT findings, I will discuss case with CDC for send out testing. May need bronch.
- Continue airborne precaution for now.
- COVID/FLU neg.
- HIV screen negative.
- Procalcitonin <0.05. DC meropenem.
- Follow repeat sputum culture pending
-Sputum AFB pending (doubt TB)
- Respiratory viral PCR panel pending
- Start empiric meropenem. DC doxycycline.
- Follow clinically
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
Rheumatoid arthritis on Plaquenil
Hypertension
Chronic upper airway cough syndrome NOS
Gout
Hypothyroidism
Nephrolithiasis
Latent TB treated x 4- 6 months 2015
Thyroidectomy
Cholecystectomy
Knee replacement
Chief Complaint
-: Pneumonia
Subjective / Review of Systems
Cough a little better.
Has FOWLER's.
No further N/V.
Vital Signs / Physical Exam
Vital Signs
Vital Signs
Temp Pulse Resp BP Pulse Ox
97.8 F 76 16 133/65 98
04/16/25 07:05 04/16/25 11:30 04/16/25 11:30 04/16/25 07:05 04/16/25 11:30
Physical Exam
Constitutional: No Acute Distress
Cardiovascular: Regular Rate and S1/S2
Pulmonary: Clear
Gastrointestinal: Soft, Non Tender, Non Distended and Normal Bowel Sounds
Extremities: Negative Edema
Neurological: AO x 3
Objective Data
Lab Data
Lab Results
04/15/25 06:32
04/15/25 06:32
ESR 62 mm/hour (0-20) H 04/15/25 06:32
Estimated Creat Clear 96 ml/min 04/15/25 06:32
Total Bilirubin 0.5 mg/dl (0.2-1.3) 04/14/25 15:02
AST 32 U/L (14-36) 04/14/25 15:02
ALT 22 U/L (0-35) 04/14/25 15:02
Alkaline Phosphatase 71 U/L (38-126) 04/14/25 15:02
C-Reactive Protein 33.80 mg/L (0.0-10.00) H 04/15/25 06:32
Most recent labs reviewed.
Micro Results:
04/14/25 12:40 Respiratory Culture - Preliminary
Sputum Gram Stain - Preliminary
04/16/25 08:45 Influenza Type A (PCR) - Pending
Nasalpharynx Influenza Type A (H1) (PCR) - Pending
Influenza Type A (H3) (PCR) - Pending
Influenza Type B (PCR) - Pending
Resp Syncytial Virus Type A (PCR) - Pending
Resp Syncytial Virus Type B (PCR) - Pending
Adenovirus DNA (PCR) - Pending
Human Metapneumovirus (PCR) - Pending
Parainfluenza Virus Type 1 (PCR) - Pending
Parainfluenza Virus Type 2 (PCR) - Pending
Parainfluenza Virus Type 3 (PCR) - Pending
Parainfluenza Virus Type 4 - Pending
Rhinovirus (PCR) - Pending
04/15/25 21:41 Acid Fast Bacilli Smear - Pending
Sputum Acid Fast Bacilli Culture - Pending
04/15/25 13:49 Respiratory Virus Culture - Pending
Nasalpharynx
04/14/25 20:26 Respiratory Culture - Final
Sputum Gram Stain - Final
04/14/25 20:24 Influenza Types A & B (COURT) - Final
Nasal Swab Negative for Influenza A & B, NAAT
Negative results must be combined with clinical observations
and patient history.
Nucleic Acid Amplification test (NAAT)performed on the
[employer] platform.
Chest CT: MODERATE to SEVERE INFLAMMATORY INTERSTITIAL PNEUMONITIS involving the periphery of both lungs in a symmetric distribution - possibly nonspecific interstitial pneumonitis (NSIP). Atypical infection or interstitial pulmonary edema
are considered unlikely.mModerate subcarinal lymphadenopathy. Chronic granulomatous disease infection.
04/14/25 CXR: SEVERE NEARLY SYMMETRIC RETICULONODULAR INTERSTITIAL DISEASE throughout the upper and lower lobes of both lungs with associated mild bilateral lung volume loss. Diagnostic possibilities are (1) an INFLAMMATORY INTERSTITIAL PNEUMONITIS
(possibly sarcoidosis), (2) atypical infection, (3) connective tissue disease, (4) lymphangitic carcinomatosis, or (5) less likely interstitial pulmonary edema.
[2025-04-16] MEDS: ROBITUSSIN DM 5 ML PO ×2 (14:40→22:10)
[2025-04-16 15:00] VITALS: BP 137/74
--- NOTE | 2025-04-16 15:11 | W.PN.PUL3 ---
Today's Communication / Plan
-
- Solumedrol 60 IV x1 then start Prednisone 40 mg daily.
Assessment
-
#1. Bilateral interstitial infiltrates concerning for atypical infection versus RA-ILD
- Bilateral groundglass opacities noted on imaging pattern suggestive of NSIP which typically tends to be related to connective tissue diseases, drug-induced, occasionally and atypical infections.
- Relative rapidity of symptoms and other family members being sick points more towards infectious etiology. Also reported low-grade fever at home.
- Procalcitonin negative, off antibiotics now. Follow-up on blood cultures, sputum cultures. WBC count is normal. No large area of consolidation noted. ID consultation for further recommendation regarding antimicrobials
- Await HIV, connective tissue disease panel including RA, CESAR. ESR elevated at 62, CRP elevated at 33.8. Urinalysis without any proteinuria or hematuria
- f/u CXR is unchanged.
- Await infectious work up.
#3. Hyperactive airway disease
- Patient appears to have end expiratory rhonchi. Reports uses of albuterol at home and previous courses of prednisone.
- Suspect patient might have underlying hyperreactive airway disease related to acute infection versus inflammation
- Started DuoNeb 4 times daily scheduled, added budesonide twice a day with benefit. Slept better at night.
- Start steroids for hyperactive airway disease/Asthmatic bronchitis
#4. Mediastinal lymphadenopathy with history of latent tuberculosis
- Patient grew up in [place]. Does not report any known exposure to active tuberculosis
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
- The calcified lymphadenopathy noted is likely sequela of prior exposure. Patient does not seem to have any upper lobe disease typical for Mycobacterium.
- Also bilateral interstitial pattern is not typical for MTB
- Await disease recommendations. Await AFB.
#5. H/o RA
- Reportedly has been on Plaquenil lately and has required short courses of prednisone many times in the past due to flare which typically has joint involvement.
- No known history of RA ILD however I do not have any previous imaging to compare if some of these changes are longstanding versus acute
- As outpatient, patient will need pulmonary function testing, 6-minute walk test etc. once she recovers from acute illness
Other medical diagnoses:
- Hypothyroidism
- HTN
- GERD
- H/o upper airway cough syndrome
Total time spent on this consultation/encounter ___42_ minutes which includes review of history, physical exam, medications, laboratory data, personal review of imaging, extensive review of outpatient records, discussion with care team and
respiratory therapy.
Data:
CT Chest 03/2025: 1. MODERATE to SEVERE INFLAMMATORY INTERSTITIAL PNEUMONITIS involving the periphery of both lungs in a symmetric distribution - possibly nonspecific interstitial pneumonitis (NSIP). Atypical infection or interstitial pulmonary
edema are considered unlikely.
2. Moderate subcarinal lymphadenopathy.
3. Chronic granulomatous disease infection.
4. Small hiatal hernia.
5. Previous left hemithyroidectomy.
Subjective Data
-
Date of Service:
Date of Service: April 16, 2025
Subjective:
Comfortably sitting in chair, on room air. Breathing better since bronchodilators started.
Review of Systems
Genitourinary: Other (All systems reviewed and negative except as stated in HPI)
Objective Data
Data Reviewed
Vital Signs / I&O / Oxygen:
Vital Signs
Temp Pulse Resp BP Pulse Ox
97.8 F 76 16 133/65 98
04/16/25 07:05 04/16/25 11:30 04/16/25 11:30 04/16/25 07:05 04/16/25 11:30
Intake and Output
04/15/25 04/16/25 04/17/25
06:59 06:59 06:59
Intake Total 240 / 240 880 / 880
Balance 240 / 240 880 / 880
SaO2 98
Physical Exam
General: Comfortable
HEENT: Normocephalic
Cardiovascular: S1-S2
Respiratory: Rhonchi and Other (Minimal end expiratory wheezing )
GI: Soft and Non Distended
Neurology: Awake and Alert
Skin: Warm
Labs/Micro/Reports
Lab Data
04/15/25 06:32
04/15/25 06:32
Microbiology
04/16/25 08:45 Nasalpharynx Influenza Type A (PCR) - Final
Not Detected
04/16/25 08:45 Nasalpharynx Influenza Type A (H1) (PCR) - Final
Not Detected
04/16/25 08:45 Nasalpharynx Influenza Type A (H3) (PCR) - Final
Not Detected
04/16/25 08:45 Nasalpharynx Influenza Type B (PCR) - Final
Not Detected
04/16/25 08:45 Nasalpharynx Resp Syncytial Virus Type A (PCR) - Final
Not Detected
04/16/25 08:45 Nasalpharynx Resp Syncytial Virus Type B (PCR) - Final
Not Detected
04/16/25 08:45 Nasalpharynx Adenovirus DNA (PCR) - Final
Not Detected
04/16/25 08:45 Nasalpharynx Human Metapneumovirus (PCR) - Final
Not Detected
04/16/25 08:45 Nasalpharynx Parainfluenza Virus Type 1 (PCR) - Final
Not Detected
04/16/25 08:45 Nasalpharynx Parainfluenza Virus Type 2 (PCR) - Final
Not Detected
04/16/25 08:45 Nasalpharynx Parainfluenza Virus Type 3 (PCR) - Final
Not Detected
04/16/25 08:45 Nasalpharynx Parainfluenza Virus Type 4 - Final
Not Detected
04/16/25 08:45 Nasalpharynx Rhinovirus (PCR) - Final
Not Detected
04/14/25 12:40 Sputum Respiratory Culture - Preliminary
04/14/25 12:40 Sputum Gram Stain - Preliminary
04/14/25 20:26 Sputum Respiratory Culture - Final
04/14/25 20:26 Sputum Gram Stain - Final
04/14/25 20:24 Nasal Swab Influenza Types A & B (COURT) - Final
Negative for Influenza A & B, NAAT
Negative results must be combined with clinical observations
and patient history.
Nucleic Acid Amplification test (NAAT)performed on the
[employer] platform.
[2025-04-16] MEDS: SOLU-MEDROL PF 60 MG IV (15:26)
[2025-04-16] MEDS: LOVENOX 40 MG SC (18:15)
[2025-04-16 23:40] VITALS: BP 130/79
[2025-04-17 01:51] LABS: ANA, IgG Reflex to HEp-2 None Detected (None Detected)
[2025-04-17] MEDS: SYNTHROID 125 MCG PO (05:39)
[2025-04-17 07:25] VITALS: BP 140/78
[2025-04-17] MEDS: PULMICORT 0.5 MG INH (07:43)
[2025-04-17] MEDS: DUONEB 3 ML INH ×3 (07:43→16:04)
[2025-04-17] MEDS: DELTASONE 40 MG PO (09:15)
[2025-04-17] MEDS: PLAQUENIL 200 MG PO (09:15)
[2025-04-17] MEDS: THERAGRAN 1 TABLET PO (09:15)
--- NOTE | 2025-04-17 11:47 | W.PN.ID1 ---
Date of Service
Date of Service: April 17, 2025
Today's Communication
DC airborne.
OK to dc home.
Assessment / Plan
# Mod to severe interstitial pneumonitis b/l lungs peripherally
# Cough x 1.5 weeks, subjected fevers
# Recent travel to [facility] for [facility] 3 weeks ago (2 week stay)
- COVID/FLU neg.
- HIV screen negative.
- Procalcitonin <0.05. DC'd meropenem.
- Respiratory viral PCR panel negative
-Sputum AFB pending (doubt TB)
- MERS CoV (middle-east resp syndrome) is now unlikely.
No fever in hospital. She is clinically responding to steroid.
No need to test for MERS.
Can dc airborne isolation.
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
Rheumatoid arthritis on Plaquenil
Hypertension
Chronic upper airway cough syndrome NOS
Gout
Hypothyroidism
Nephrolithiasis
Latent TB treated x 4- 6 months 2015
Thyroidectomy
Cholecystectomy
Knee replacement
Chief Complaint
-: Pneumonia
Subjective / Review of Systems
She reports cough has improved since starting steroid.
Vital Signs / Physical Exam
Vital Signs
Vital Signs
Temp Pulse Resp BP Pulse Ox
97.7 F 71 16 140/78 97
04/17/25 07:25 04/17/25 07:45 04/17/25 07:45 04/17/25 07:25 04/17/25 07:45
Physical Exam
Constitutional: No Acute Distress and Comfortable
Cardiovascular: Regular Rate and S1/S2
Pulmonary: Clear
Gastrointestinal: Soft, Non Tender, Non Distended and Normal Bowel Sounds
Extremities: Negative Edema
Neurological: AO x 3
Objective Data
Lab Data
Lab Results
04/15/25 06:32
04/15/25 06:32
ESR 62 mm/hour (0-20) H 04/15/25 06:32
Estimated Creat Clear 96 ml/min 04/15/25 06:32
Total Bilirubin 0.5 mg/dl (0.2-1.3) 04/14/25 15:02
AST 32 U/L (14-36) 04/14/25 15:02
ALT 22 U/L (0-35) 04/14/25 15:02
Alkaline Phosphatase 71 U/L (38-126) 04/14/25 15:02
C-Reactive Protein 33.80 mg/L (0.0-10.00) H 04/15/25 06:32
Most recent labs reviewed.
Micro Results:
04/16/25 08:45 Influenza Type A (PCR) - Final
Nasalpharynx Not Detected
Influenza Type A (H1) (PCR) - Final
Not Detected
Influenza Type A (H3) (PCR) - Final
Not Detected
Influenza Type B (PCR) - Final
Not Detected
Resp Syncytial Virus Type A (PCR) - Final
Not Detected
Resp Syncytial Virus Type B (PCR) - Final
Not Detected
Adenovirus DNA (PCR) - Final
Not Detected
Human Metapneumovirus (PCR) - Final
Not Detected
Parainfluenza Virus Type 1 (PCR) - Final
Not Detected
Parainfluenza Virus Type 2 (PCR) - Final
Not Detected
Parainfluenza Virus Type 3 (PCR) - Final
Not Detected
Parainfluenza Virus Type 4 - Final
Not Detected
Rhinovirus (PCR) - Final
Not Detected
04/14/25 12:40 Respiratory Culture - Preliminary
Sputum Gram Stain - Preliminary
04/15/25 21:41 Acid Fast Bacilli Smear - Pending
Sputum Acid Fast Bacilli Culture - Pending
04/15/25 13:49 Respiratory Virus Culture - Pending
Nasalpharynx
04/14/25 20:26 Respiratory Culture - Final
Sputum Gram Stain - Final
04/14/25 20:24 Influenza Types A & B (COURT) - Final
Nasal Swab Negative for Influenza A & B, NAAT
Negative results must be combined with clinical observations
and patient history.
Nucleic Acid Amplification test (NAAT)performed on the
[employer] platform.
04/14/[address]: MODERATE to SEVERE INFLAMMATORY INTERSTITIAL PNEUMONITIS involving the periphery of both lungs in a symmetric distribution - possibly nonspecific interstitial pneumonitis (NSIP). Atypical infection or interstitial pulmonary edema
are considered unlikely.mModerate subcarinal lymphadenopathy. Chronic granulomatous disease infection.
04/14/25 CXR: SEVERE NEARLY SYMMETRIC RETICULONODULAR INTERSTITIAL DISEASE throughout the upper and lower lobes of both lungs with associated mild bilateral lung volume loss. Diagnostic possibilities are (1) an INFLAMMATORY INTERSTITIAL PNEUMONITIS
(possibly sarcoidosis), (2) atypical infection, (3) connective tissue disease, (4) lymphangitic carcinomatosis, or (5) less likely interstitial pulmonary edema.
Care Review
Plan reviewed with: Physician (Jennifer Culver and Heather)
--- NOTE | 2025-04-17 11:56 | W.PN.HOSP.TC ---
Today's Communication/Plan
-
discuss woth pulm and ID further plans
Assessment / Plan
Assessment / Plan
64yo F with PMHx of hypothyroidism, RA came with severe cough with pleurosy after her recent rip to [place]. Her family was sick with same symptoms. Improved and remained not hypoxic. CT showed MODERATE to SEVERE INFLAMMATORY INTERSTITIAL
PNEUMONITIS involving the periphery of both lungs in a symmetric distribution, ID concerned for MERS, however testing not available in . respiratory viral PCR panel negative, Abx stopped as per ID.
A/P:
#Interstitial pneumonitis
#Reactive airway disease
#Hx of treated latent TB
apical infection vs RA ILD
ESR/CRP elevated
CESAR, HIV neg
RF pending
Acid fast smear pending
RSV culture pending
ID and pulm follows
cont Airborne precautions
Bronchodilators and steroids
#hypothyroidism s/p L hemithyroidectomy
cont synthroid
#RA
cont home meds
DVT ppx lovenox
full code
I have spent at least 58min reviewing chart, test reuslts and providing direct patient care
Anticipated Discharge: 24 - 48 hours
Subjective/Interval History
-
Date of Service: April 17, 2025
Objective Data
-
Vital Signs:
Vital Signs
Temp Pulse Resp BP Pulse Ox
97.7 F 71 16 140/78 97
04/17/25 07:25 04/17/25 07:45 04/17/25 07:45 04/17/25 07:25 04/17/25 07:45
I&O
04/16/25 04/17/25 04/18/25
06:59 06:59 06:59
Intake Total 880 / 880 480 / 480
Balance 880 / 880 480 / 480
Review of Systems
-
History Source: Patient
All other systems: Reviewed and negative
Physical Exam
-
General: Comfortable
HEENT: Normocephalic
Respiratory: Clear to Auscultation
GI: Soft, Nontender and Nondistended
Musculoskeletal: No Clubbing, No Cyanosis and No Edema
Neuro: Awake, Alert and Oriented
Psych: Calm
--- NOTE | 2025-04-17 13:14 | W.DCSUMMARY ---
Discharge Summary
Discharge Data
Date of Admission: 04/14/25
Date of Discharge: 04/17/25
-
Pending Results: Yes
Additional Pending Results:
AFB
Hospital Course
64yo F with PMHx of hypothyroidism, came with severe cough with pleurosy after her recent rip to [place]. Her family was sick with same symptoms. Improved and remained not hypoxic. CT showed MODERATE to SEVERE INFLAMMATORY INTERSTITIAL
PNEUMONITIS involving the periphery of both lungs in a symmetric distribution, ID concerned for MERS, however testing not available in . respiratory viral PCR panel negative, Abx stopped as per ID and as per further discussion - patient can be D/C
without any futher precautions. Tapering steroids and outpatient pulm follow up referral provided. Patient is feeling much better remained on RA and medcially stable for d/c home on the day of discharge
I have spent at least 58min reviewing chart, test reuslts and providing direct patient care
Patient was managed for:
#Interstitial pneumonitis
#Reactive airway disease
#Hx of treated latent TB
#hypothyroidism s/p L hemithyroidectomy
#RA
Discharge Plan
-
Patient Disposition: Home (Routine Discharge)
Discharge Diagnosis/Procedures: pneumonitis
Diet: Regular
Activity: As tolerated
Referrals:
Cydney Romero MD [Active, Pulmonary Medicine] - in one to two weeks
Manny Orellana DO [Family Provider, Family Practice]
Prescriptions:
New
dextromethorphan-guaifenesin 10-100 mg/5 mL Syrup
5 ml PO Q4HPRN PRN (Reason: cough) Qty: 237 0RF
prednisone 10 mg Tablet
See Rx Instructions .ROUTE .COMPLEX Qty: 30 0RF
Rx Instructions:
Take By Mouth:
40 mg daily x3 days, 30 mg daily x3 days,
20 mg daily x3 days, 10 mg daily x3 days.
albuterol sulfate [Ventolin HFA] 90 mcg/actuation HFA aerosol inhaler
2 puff inhalation Q6H PRN (Reason: shortness of breath or wheezing) Qty: 6.7 0RF
budesonide-formoterol 160-4.5 mcg/actuation HFA aerosol inhaler
1 puff inhalation BID Qty: 10.2 0RF
Continued
therapeutic multivitamin Tablet
1 tab PO DAILY
acetaminophen [Tylenol Extra Strength] 500 mg Tablet
500 mg PO BIDPRN PRN (Reason: mild pain)
levothyroxine 125 mcg Tablet
125 mcg PO DAILY
hydroxychloroquine 200 mg Tablet
200 mg PO BID
cholecalciferol (vitamin D3) 125 mcg (5,000 unit) Capsule
125 mcg PO DAILY
psyllium husk powder
1 tsp PO DAILYPRN PRN (Reason: constipation)
Discontinued
ascorbic acid (vitamin C) [Vitamin C] 1,000 mg Tablet
1,000 mg PO DAILY
doxycycline hyclate 100 mg Capsule
100 mg PO BID
Patient Comments:
04/14/2025, filled on 04/11/2025 and instructed to take 1 capsule BID for 7 days.
benzonatate 100 mg Capsule
100 mg PO TID PRN (Reason: cough)
Discharge Orders:
Discharge Patient (As Directed); Ordered 04/17/25
Ordered By: Rj Culver
Discharge Date and Time
Print Language: KYRGYZ
--- NOTE | 2025-04-17 13:37 | W.PN.PUL3 ---
Today's Communication / Plan
-
- Stable for discharge from pulmonary standpoint
- At discharge, start Symbicort 160 x 4.5, 2 puffs twice a day inhaled
- Prednisone 40 mg for 3 days followed by 30 mg for 3 days followed by 20 mg for 3 days followed by 10 mg for 3 days and then discontinue
- Patient will resume follow-up with her ore charger in about 2 to 3 weeks time
- Discharge planning once cleared by infectious disease service
- Pulmonary service will sign off, please call as needed
Assessment
-
#1. Bilateral interstitial infiltrates concerning for atypical infection versus RA-ILD
- Bilateral groundglass opacities noted on imaging pattern suggestive of NSIP which typically tends to be related to connective tissue diseases, drug-induced, occasionally and atypical infections.
- Relative rapidity of symptoms and other family members being sick points more towards infectious etiology. Also reported low-grade fever at home.
- Procalcitonin negative, off antibiotics now. Follow-up on blood cultures, sputum cultures. WBC count is normal. No large area of consolidation noted. ID service on case.
- Negative HIV, CESAR negative, known history of rheumatoid arthritis. ESR elevated at 62, CRP elevated at 33.8. Urinalysis without any proteinuria or hematuria
- f/u CXR is unchanged.
- MERS, being considered as well. Patient clinically significantly improved overall. Patient's other relatives who accompanied her had similar symptoms who have improved and are asymptomatic currently. Talk to patient's son via phone.
- 04/17, patient comfortably sitting in chair, on room air, able to walk around without any discomfort. Cough significantly improved, chest tightness resolved.
#3. Hyperactive airway disease, suspect acute asthma exacerbation
- Suspect acute asthma exacerbation in the setting of viral infection. Patient reports using albuterol as needed at home, typically triggered by allergy and cold, also reported use of prednisone in the past. Suspect she has underlying
hyperreactive airway disease/asthma.
- Responded very well to inhaled and IV steroids, wheezing resolved, overall feels much better this morning.
- Transition to Symbicort 2 puffs twice a day along with prednisone taper
#4. Mediastinal lymphadenopathy with history of latent tuberculosis
- Patient grew up in [place]. Does not report any known exposure to active tuberculosis
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
- The calcified lymphadenopathy noted is likely sequela of prior exposure. Patient does not seem to have any upper lobe disease typical for Mycobacterium.
- Also bilateral interstitial pattern is not typical for MTB
- Patient will resume follow-up with her ore charger as outpatient
#5. H/o RA
- Reportedly has been on Plaquenil lately and has required short courses of prednisone many times in the past due to flare which typically has joint involvement.
- No known history of RA ILD however I do not have any previous imaging to compare if some of these changes are longstanding versus acute
- As outpatient, patient will need pulmonary function testing, 6-minute walk test etc. once she recovers from acute illness
- Discussed with the patient, she reports that she will resume follow-up with her ore charger in coming weeks.
Other medical diagnoses:
- Hypothyroidism
- HTN
- GERD
- H/o upper airway cough syndrome
Total time spent on this consultation/encounter ___42_ minutes which includes review of history, physical exam, medications, laboratory data, personal review of imaging, extensive review of outpatient records, discussion with care team and
respiratory therapy.
Data:
CT Chest 03/2025: 1. MODERATE to SEVERE INFLAMMATORY INTERSTITIAL PNEUMONITIS involving the periphery of both lungs in a symmetric distribution - possibly nonspecific interstitial pneumonitis (NSIP). Atypical infection or interstitial pulmonary
edema are considered unlikely.
2. Moderate subcarinal lymphadenopathy.
3. Chronic granulomatous disease infection.
4. Small hiatal hernia.
5. Previous left hemithyroidectomy.
Subjective Data
-
Date of Service:
Date of Service: April 17, 2025
Subjective:
Patient comfortably sitting in chair, on room air, reports overall feeling much better.
Review of Systems
Genitourinary: Other (All 14 systems reviewed and negative except as stated above in the history of present illness.)
Objective Data
Data Reviewed
Vital Signs / I&O / Oxygen:
Vital Signs
Temp Pulse Resp BP Pulse Ox
97.7 F 83 16 140/78 96
04/17/25 07:25 04/17/25 11:45 04/17/25 11:45 04/17/25 07:25 04/17/25 11:45
Intake and Output
04/16/25 04/17/25 04/18/25
06:59 06:59 06:59
Intake Total 880 / 880 480 / 480
Balance 880 / 880 480 / 480
SaO2 96
Physical Exam
General: Comfortable
HEENT: Normocephalic
Cardiovascular: S1-S2
Respiratory: Other (Wheezing resolved)
GI: Soft and Non Distended
Neurology: Awake and Alert
Skin: Warm
Labs/Micro/Reports
Lab Data
04/15/25 06:32
04/15/25 06:32
Microbiology
04/14/25 12:40 Sputum Respiratory Culture - Preliminary
04/14/25 12:40 Sputum Gram Stain - Preliminary
04/16/25 08:45 Nasalpharynx Influenza Type A (PCR) - Final
Not Detected
04/16/25 08:45 Nasalpharynx Influenza Type A (H1) (PCR) - Final
Not Detected
04/16/25 08:45 Nasalpharynx Influenza Type A (H3) (PCR) - Final
Not Detected
04/16/25 08:45 Nasalpharynx Influenza Type B (PCR) - Final
Not Detected
04/16/25 08:45 Nasalpharynx Resp Syncytial Virus Type A (PCR) - Final
Not Detected
04/16/25 08:45 Nasalpharynx Resp Syncytial Virus Type B (PCR) - Final
Not Detected
04/16/25 08:45 Nasalpharynx Adenovirus DNA (PCR) - Final
Not Detected
04/16/25 08:45 Nasalpharynx Human Metapneumovirus (PCR) - Final
Not Detected
04/16/25 08:45 Nasalpharynx Parainfluenza Virus Type 1 (PCR) - Final
Not Detected
04/16/25 08:45 Nasalpharynx Parainfluenza Virus Type 2 (PCR) - Final
Not Detected
04/16/25 08:45 Nasalpharynx Parainfluenza Virus Type 3 (PCR) - Final
Not Detected
04/16/25 08:45 Nasalpharynx Parainfluenza Virus Type 4 - Final
Not Detected
04/16/25 08:45 Nasalpharynx Rhinovirus (PCR) - Final
Not Detected
04/14/25 20:26 Sputum Respiratory Culture - Final
04/14/25 20:26 Sputum Gram Stain - Final
04/14/25 20:24 Nasal Swab Influenza Types A & B (COURT) - Final
Negative for Influenza A & B, NAAT
Negative results must be combined with clinical observations
and patient history.
Nucleic Acid Amplification test (NAAT)performed on the
[employer] platform.
--- NOTE | 2025-04-17 14:08 | CM ---
Addendum entered by Jagdish Ventura 04/17/25 15:31:
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
Discharge order is in again.
Addendum entered by Jagdish Ventura 04/17/25 14:42:
Per MD discharge has been cancelled due to State request policy.
Original Note:
CM following rte: discharge planning.
Reviewed pt's chart, met with pt.
Discharge order noted. Pt is aware, expressed her agreement with discharge. Pt stated her son or daughter in law will transport home.
No after care VN services indicated.
D/C plan: home no needs. Son to transport.
--- NOTE | 2025-04-17 14:37 | W.PN.UPDATE ---
Update Note
Progress Note Update
as per ID:
the State Dept wants to test pt for MERS. Discharge cancelled
--- NOTE | 2025-04-17 15:12 | W.PN.UPDATE ---
Update Note
Progress Note Update
[facility] Department requests testing patient for MERS-CoV. Will send BRAND MANAGER/OP swabs. She has sputum sample in lab which can be sent for MERS CoV PCR.
Appreciate Infection Preventionists help with coordinating with [facility].
Patient can be discharged after BRAND MANAGER/OP swab collection.
Discussed with Dr. Culver.
--- NOTE | 2025-04-17 15:26 | PN.CDI ---
Addendum entered and electronically signed by Rj Culver MD 04/17/25 15:45:
documentation complete, no addition to be done
Original Note:
CDI
- -
CDI:
Physician Documentation Request
Admit Date: 04/14/25 20:59
Dear Doctor Palomo,
Please review the following and provide your response in the progress notes.
Clinical Indicators:
Pt admitted with cough /#Interstitial pneumonitis /Reactive airway disease
Documented per ED, ' Acute interstitial pneumonitis...'
Pt on meropenem for treatment
Please update the status of Acute interstitial pneumonias documented in ED:
Acute interstitial pneumonias- a valid diagnosis
Acute interstitial pneumonitis - ruled out
Other ( please specify )
Use of terms such as suspected, likely, concern for, or probable (associated with a specific diagnosis that is being evaluated, monitored, or treated as if it exists) are acceptable and can be coded in the inpatient setting, when documented at the
time of discharge.
Thank you,
Marlen Schaefer RN
CDI Specialist
[place] [facility]
Please use your independent medical judgment in providing your response.
[2025-04-17 15:37] VITALS: BP 154/80
[2025-04-17 16:20] LABS: Rheumatoid Agglutinin Positive (<10 IU)
[2025-04-17 16:28] LABS: Rheumatoid Agg. Semi-quant 1024 IU
[2025-04-17] MEDS: ROBITUSSIN DM 5 ML PO (16:34)
--- NOTE | 2025-04-19 14:55 | W.PN.UPDATE ---
Update Note
Progress Note Update
I spoke with patient's son Lissett Hartman [phone] and informed him of his mother's respiratory culture growing haemophilus parainfluenzae
He reports his young daughter is running 104 temperature I advised him to call the skein drier to have her seen immediately and have a respiratory panel drawn if she is not able to get into the skein drier he should seek treatment at local urgent
care or emergency room his order should also not be going outside in the heat or attending any parties as she could possibly also have haemophilus parainfluenza
- He was made aware the haemophilus influenza A is contagious and to monitor anyone in the home for fevers, cough, shortness of breath and seek treatment
- I will call in Augmentin twice daily 7-day course to [facility] [phone] patient has a follow-up appointment in 2 weeks
- I discussed the case with Dr. Maryann torres infectious disease who saw the patient inpatient and recommended above treatment
- His mother is visiting from [facility] her MERS testing is still pending which was recommended by the health department
== END 2025-04-17 16:58 | disposition home or self-care (01) | DRG 198 ==
LOC: 2 NORTH 20:59
PROVIDERS: Registered Nurse; ADMITTING PHYSICIAN Internal Medicine; ATTENDING PHYSICIAN Internal Medicine; CONSULT PHYSICIAN Internal Medicine Infectious Disease; EMERGENCY PHYSICIAN Emergency Medicine; FAMILY PHYSICIAN Family Medicine Geriatric Medicine; OTHER PHYSICIAN Internal Medicine
DX: J84.114 Acute interstitial pneumonitis (principal); Z86.15 Personal history of latent tuberculosis infection; J45.909 Unspecified asthma, uncomplicated; M06.9 Rheumatoid arthritis, unspecified; Z79.899 Other long term (current) drug therapy; E89.0 Postprocedural hypothyroidism; Z79.890 Hormone replacement therapy; K59.00 Constipation, unspecified; I10 Essential (primary) hypertension; K21.9 Gastro-esophageal reflux disease without esophagitis; K44.9 Diaphragmatic hernia without obstruction or gangrene; Z22.7 Latent tuberculosis; Z87.442 Personal history of urinary calculi; Z90.49 Acquired absence of other specified parts of digestive tract; Z90.710 Acquired absence of both cervix and uterus; Z96.659 Presence of unspecified artificial knee joint
CPT/HCPCS: 71045; 71046; 71260; 80048; 80053; 81003; 83880; 84145; 85025; 85027; 85652; 86038; 86140; 86430; 86431; 87070; 87077; 87116; 87185; 87205; 87252; 87389; 87502; 87633; 87811; 94640; 96360; 99285; Q9967

== ENCOUNTER 2025-05-24 15:32 | Inpatient (IN) | payer OTHER, SELFPAY ==
[2025-05-24 11:46] VITALS: BP 141/80
[2025-05-24 12:09] LABS: Hematocrit 35.8 % (37.0-47.0); Hemoglobin 11.7 g/dL (12.0-16.0); Mean Corp Hgb Conc. 32.7 g/dL (33.0-37.0); Mean Corpuscular Volume 78.7 fL (81.0-99.0); Nucleated Red Blood Cells % 0 %; Platelet Count 341 10^3/uL (130-400); Red Cell Dist. Width 13.5 % (11.5-14.5)
[2025-05-24 12:27] LABS: ALT (SGPT) 14 U/L (0-35); AST (SGOT) 26 U/L (14-36); Albumin 3.7 g/dl (3.5-5.0); Alkaline Phosphatase 72 U/L (38-126); Blood Urea Nitrogen 9 mg/dl (7-17); Calcium 8.6 mg/dl (8.4-10.2); Carbon Dioxide 26 mmol/L (22-30); Chloride 109 mmol/L (98-107); Glucose 110 mg/dl (70-99); Potassium 3.9 mmol/L (3.5-5.1); Sodium 140 mmol/L (135-145); Total Protein 6.4 g/dl (6.3-8.2); eGFR > 60.00
[2025-05-24 12:34] LABS: COVID-19 Antigen Negative (Negative)
[2025-05-24 13:09] VITALS: BMI 34.6
[2025-05-24 13:12] VITALS: BP 120/63
--- NOTE | 2025-05-24 13:25 | ED.GENMED ---
History of Present Illness
General
Chief Complaint: Cough
Time Seen by Provider: 05/24/25 13:13
History of Present Illness
History of Present Illness:
65-year-old female presents the emergency department for evaluation of worsening shortness of breath. She was admitted to this hospital 1 month ago for acute interstitial pneumonitis, respiratory cultures initially grew out Haemophilus
parainfluenzae however after further workup inpatient antibiotics were discontinued. She was treated with tapering steroids. She reports that she has not felt much better throughout the duration of her time since the last admission. She continues
to have cough productive of clear mucus and severe exertional shortness of breath. Denies chest pain or leg swelling. No fevers.
Past History
Past History
ED Past Surgical History: Cholecystectomy, Gynecological, Orthopedic, Urological (lithotripsy) and Other (partial thyroidectomy)
Social History
Tobacco: Non-smoker
Alcohol: None
Personal:
Living: with family
Employment: Not employed
Review of Systems
Review of Systems
Allergies reviewed?: Yes
All Other Systems: ROS reviewed and negative except as documented in HPI and ROS
Phy Exam
Physical Exam
Physical Exam:
GEN: Well appearing, NAD, WDWN
HEENT: Oral mucosa moist, no scleral icterus
Cardiac: Regular rate and rhythm, no murmurs
Lung: Tachypneic with no signs of respiratory distress, dry crackles heard throughout all lung paulino but predominantly in the right upper and middle lobes
MSK: No gross deformity or injuries
Skin: Good color, no pallor or jaundice, no rashes
Neuro: AO x3, moves all extremities freely
Psych: Calm, cooperative
Course
Orders/Labs/Results
Orders:
Orders
05/24/25 11:50
Chest [CR Chest - 2 Views ] Urgent
Comment:
Reason For Exam: cough
05/24/25 11:56
Complete Blood Count/With Diff Urgent
Comprehensive Metabolic Panel Urgent
05/24/25 11:57
COVID-19 Antigen Urgent
Source: Nasal Swab
Influenza A+B Rapid Molecular Urgent
KEO Source: Nasal Swab
Specimen Description:
05/24/25 13:24
Ipratropium/Albuterol Sulfate [Duoneb] 3 ml INH R NOW STA
MethylPREDNISolone PF [Solu-Medrol Pf] 60 mg IV NOW STA
05/24/25 14:25
Ipratropium/Albuterol Sulfate [Duoneb] 3 ml INH R NOW STA
05/24/25 15:16
Admit/Transfer Patient As Directed
Co-Sign Provider:
Level of Care: Inpatient admission
Assign to:: Medical/Surgical
Physician / Group: jame
Diagnosis: interstitial lung disease
Reason for Hospitalization: interstitial lung disease
Expected length of stay greater than two midnights?: Yes
ELOS- Estimated Length of Stay in days: 2
I certify the patient meets the requirements for IP care: Yes
Code Status As Directed
Resuscitation Status: Full Code
PRN Pain Medication Management As Directed
May give lesser potent ordered pain med per pt: Yes
preference::
Protocol:: Medication orders for pain may be administered in a
manner that supports deferring to patient preference
when the pt is:
- Requesting an ordered lesser potent pain medication.
Least to most potent pain medications are defined
as: acetaminophen < NSAID < tramadol < opioids
(morphine, oxycodone, hydromorphone).
- Requesting a lesser dose of the same medication IF
ORDERED.
- Requesting a less intrusive route of administration
if both routes are prescribed by the provider (PO <
IV).
Abnormal Lab Results
05/24/25
11:56
Hgb 11.7 L g/dL
(12.0-16.0)
Hct 35.8 L %
(37.0-47.0)
MCV 78.7 L fL
(81.0-99.0)
MCH 25.7 L pg
(27.0-31.0)
MCHC 32.7 L g/dL
(33.0-37.0)
Absolute Neuts (auto) 7.2 H 10^3/uL
(1.4-6.5)
Lymphocytes % 19.0 L %
(20.5-51.1)
Chloride 109 H mmol/L
(98-107)
Glucose 110 H mg/dl
(70-99)
05/24/25 11:56
05/24/25 11:56
Vital Signs
Initial and Last Documented VS:
Initial Vital Signs
Temp Pulse Resp BP Pulse Ox
98.5 F 83 18 141/80 95
05/24/25 11:46 05/24/25 11:46 05/24/25 11:46 05/24/25 11:46 05/24/25 11:46
Last Documented Vital Signs
Temp Pulse Resp BP Pulse Ox
98.5 F 94 37 120/63 93
05/24/25 11:46 05/24/25 15:45 05/24/25 15:45 05/24/25 13:12 05/24/25 15:45
MDM/Problems Addressed
MDM/Problems Addressed:
Will admit patient due to persistent hypoxemia in the setting of likely interstitial lung disease, no indication for new antibiotics at this time
*Pulse Oximetry
SaO2: 95
Oxygen Mode of Delivery: Room air
Patient hypoxic: no
*Critical Care Note
Total Time (30-74mins, 75-104mins- exclusive of procedures): Not Applicable
ED Attending Note
-
Portions of this chart may have been created with voice recognition software.� Occasional wrong word or��sound alike� substitutions may have occurred due to the inherent limitations of voice recognition software.
Discharge Plan
Departure
Patient Disposition: Admit
Date of Disposition: 05/24/25
Time of Disposition: 14:27
Presentation/result/management discussed w/ accepting MD/DO: Hospitalist
Discharge Problem:
Interstitial lung disease, Acute hypoxemic respiratory failure
Interventions
Interventions:
*Risk Screen - Suicide Last Done: 05/24/25 11:46
*General Assessment Last Done: 05/24/25 11:46
*ED- Fall Risk Assessment Last Done: 05/24/25 13:09
*ED COVID-19 Vaccine History Last Done: 05/24/25 13:09
ED- Pulmonary Assessment Last Done: 05/24/25 13:09
[2025-05-24] MEDS: DUONEB 3 ML INH ×3 (13:30→19:23)
[2025-05-24] MEDS: SOLU-MEDROL PF 60 MG IV (13:30)
--- NOTE | 2025-05-24 15:22 | HPS.HSE ---
Family Physician
-
Family Physician: Manny Orellana
Chief Complaint
-
shortness of breath
History of Present Illness
65-year-old female past medical history of interstitial pneumonitis, reactive airway disease/asthma, history of treated latent TB, rheumatoid arthritis, hypothyroidism status post hemithyroidectomy, rheumatoid arthritis, gout, nephrolithiasis,
presenting with worsening shortness of breath. She states since discharge she has been having worsening cough and shortness of breath. Denies any fever. Did have some vomiting with clear sputum cough afterwards. No abdominal pain or diarrhea.
Does have postnasal drip and throat irritation ongoing from previously.
She was hospitalized 1 month ago for acute intentional pneumonitis, respiratory cultures initially grew out haemophilus parainfluenza however after further workup inpatient antibiotics were discontinued. She was treated with tapering steroids.
She has not felt better throughout the duration of her time since the last admission. She continues to have cough adductive clear mucus and severe exertional shortness of breath. No chest pain or leg swelling. No fever.
He does not smoke or drink alcohol.
Medical History
Past Medical History
Past Medical History: Reports Other (interstitial pneumonitis, reactive airway disease/asthma, history of treated latent TB, rheumatoid arthritis, hypothyroidism status post hemithyroidectomy, rheumatoid arthritis, gout, nephrolithiasis,)
Past Surgical History: Reports None
Social History
Tobacco: Non-smoker
Alcohol: None
Drug: None
Family History
Family History: Not pertinent
Allergies / Home Medications
Allergies reflects when Allergies were last updated in [employer].
Home Medications with original date entered in [employer]
Allergy/Medication List:
Allergies
Allergy/AdvReac Type Severity Reaction Status Date / Time
No Known Allergies Allergy Unverified 05/24/25 11:47
Home Medications
acetaminophen 500 mg tablet (Tylenol Extra Strength) 500 mg PO BIDPRN PRN mild pain 04/14/25
cholecalciferol (vitamin D3) 125 mcg (5,000 unit) capsule 125 mcg PO DAILY 04/14/25
hydroxychloroquine 200 mg tablet 200 mg PO BID 04/14/25
levothyroxine 125 mcg tablet 125 mcg PO DAILY 04/14/25
psyllium husk 1 tsp PO DAILYPRN PRN constipation 04/14/25
therapeutic multivitamin 1 tab PO DAILY 04/14/25
albuterol sulfate 90 mcg/actuation aerosol inhaler (Ventolin HFA) 2 puff inhalation Q6H PRN shortness of breath or wheezing #6.7 grams 04/17/25
budesonide-formoterol HFA 160 mcg-4.5 mcg/actuation aerosol inhaler 2 puff inhalation BID #10.2 grams 04/17/25
dextromethorphan-guaifenesin 10 mg-100 mg/5 mL oral syrup 5 ml PO Q4HPRN PRN cough #237 mL 04/17/25
prednisone 10 mg tablet See Rx Instructions .Route .COMPLEX #30 tabs 04/17/25
Review of Systems
-
Constitutional: Reports No Symptoms
EENT: Reports No Symptoms
Respiratory: Reports See HPI
Cardiac: Reports No Symptoms
Abdomen/GI: Reports No Symptoms
: Reports No Symptoms
Musculoskeletal: Reports No Symptoms
Skin: Reports No Symptoms
Neurological: Reports No Symptoms
Endocrine: Reports No Symptoms
Hematologic/Lymphatic: Reports No Symptoms
Psych: Reports No Symptoms
Physical Exam
Vital Signs
Vital Signs
Temp Pulse Resp BP Pulse Ox
98.5 F 80 23 120/63 96
05/24/25 11:46 05/24/25 14:30 05/24/25 14:30 05/24/25 13:12 05/24/25 14:30
Physical Exam
General: Well Developed, Well Nourished and No Apparent Distress
HEENT: NormoCephalic, Moist mucous membranes and Atraumatic
Respiratory: Clear
Cardiac: S1/S2 and Regular Rhythm; No Murmur or Rub
GI: Soft, Non Tender, Non Distended and Normal Bowel Sounds; No Organomegaly
Rectal: Deferred by Provider
Musculoskeletal: No Clubbing, No Cyanosis and No Edema
Skin: No Rash
Neuro: Nonfocal/grossly intact
Laboratory Results
-
05/24/25 11:56
05/24/25 11:56
Laboratory Results
Total Bilirubin 0.5 mg/dl (0.2-1.3) 05/24/25 11:56
AST 26 U/L (14-36) 05/24/25 11:56
ALT 14 U/L (0-35) 05/24/25 11:56
Alkaline Phosphatase 72 U/L (38-126) 05/24/25 11:56
Data Reviewed
-
Lab Data: Labs Reviewed by me
Old Records: Reviewed
Impression/Plan
-
IMPRESSION:
PLAN:
# Bilateral interstitial infiltrates concerning for atypical infection versus rheumatoid arthritis ILD
# History of reactive airway disease/asthma
- Previously had autoimmune workup including CESAR and HIV which were negative,
- ESR and CRP were elevated
-Previously negative for MERS�COV, respiratory viral panel negative,
-AFB negative
-Respiratory culture was positive for haemophilus parainfluenza
- Chest x-ray showed underlying interstitial lung disease similar appearance compared to prior study
- DuoNebs every 6 hours
- Dexamethasone 4 mg every 12
-Seen by ID and pulmonary last time
- Pulmonary consulted
History of treated latent TB
Mediastinal lymphadenopathy
Rheumatoid arthritis
- Continue hydroxychloroquine
Essential hypertension
GERD
History of hemithyroidectomy with hypothyroidism
- Continue levothyroxine
Chronic anemia
- Hemoglobin stable 11.7
Gout
Nephrolithiasis
Full code
DVT prophylaxis�heparin
Regular diet
[2025-05-24 18:46] VITALS: BMI 34.1
[2025-05-24] MEDS: DUONEB INH (19:21)
[2025-05-24 19:24] VITALS: BP 139/91
[2025-05-24] MEDS: HEPARIN 5000 UNITS SC (20:14)
[2025-05-24] MEDS: PROTONIX 40 MG PO (21:50)
[2025-05-24 23:11] VITALS: BP 146/92
[2025-05-25] MEDS: TYLENOL 500 MG PO ×3 (01:25→20:04)
[2025-05-25] MEDS: DECADRON 4 MG IV ×2 (01:34→13:35)
[2025-05-25] MEDS: SYNTHROID 125 MCG PO (05:06)
[2025-05-25] MEDS: DUONEB 3 ML INH ×4 (06:03→19:41)
[2025-05-25] MEDS: SYMBICORT 160/4.5 MCG INHALER 2 PUFF INH ×2 (06:03→19:43)
[2025-05-25 07:38] VITALS: BP 146/82
[2025-05-25] MEDS: VITAMIN C 500 MG PO (07:51)
[2025-05-25] MEDS: PLAQUENIL 200 MG PO ×2 (07:51→20:03)
[2025-05-25] MEDS: PROTONIX 40 MG PO (07:51)
[2025-05-25] MEDS: VITAMIN D3 (cholecalciferol) 25 MCG PO (07:51)
[2025-05-25] MEDS: THERAGRAN 1 TABLET PO (07:51)
[2025-05-25] MEDS: HEPARIN 5000 UNITS SC ×2 (07:51→20:04)
[2025-05-25] MEDS: ZINC 50 MG PO (07:51)
[2025-05-25 08:01] LABS: Hematocrit 36.0 % (37.0-47.0); Hemoglobin 11.7 g/dL (12.0-16.0); Mean Corp Hgb Conc. 32.5 g/dL (33.0-37.0); Mean Corpuscular Volume 78.8 fL (81.0-99.0); Nucleated Red Blood Cells % 0 %; Platelet Count 315 10^3/uL (130-400); Red Cell Dist. Width 13.3 % (11.5-14.5)
--- NOTE | 2025-05-25 11:12 | CM ---
Patient seen at bedside
IA completed
Dx: Intersitital lung disease
PMH: interstitial pneumonitis, reactive airway disease/asthma, history of treated latent TB, rheumatoid arthritis, hypothyroidism status post hemithyroidectomy, rheumatoid arthritis, gout, nephrolithiasis
Lives with her and son in a 2 story home with a basement, 1 ASIF, bedroom/bathroom on 1st floor
PLOF: Independent, uses a wheelchair for long distrances
DME: Walker, cane, wheelchair, shower chair
Denies insecurities
Denies VN/Rehab
PCP: Manny Orellana
Pharmacy: [facility], [place]
PLAN: Home, no needs anticipated, CM to continue to follow
[2025-05-25 11:23] LABS: ALT (SGPT) 14 U/L (0-35); AST (SGOT) 24 U/L (14-36); Albumin 3.9 g/dl (3.5-5.0); Alkaline Phosphatase 79 U/L (38-126); Blood Urea Nitrogen 10 mg/dl (7-17); Calcium 9.0 mg/dl (8.4-10.2); Carbon Dioxide 25 mmol/L (22-30); Chloride 109 mmol/L (98-107); Estimated Creatinine Clearance 94 ml/min; Glucose 152 mg/dl (70-99); Potassium 4.0 mmol/L (3.5-5.1); Sodium 142 mmol/L (135-145); Total Protein 6.6 g/dl (6.3-8.2); eGFR > 60.00
[2025-05-25 11:26] LABS: C-Reactive Protein 23.80 mg/L (0.0-10.00)
--- NOTE | 2025-05-25 11:57 | W.PN.HOSP.TC ---
Today's Communication/Plan
-
IV steroids
Assessment / Plan
Assessment / Plan
Physical exam:
General: Acutely ill and No Apparent Distress
HEENT: Normocephalic, Atraumatic and Moist Mucous Membranes
Respiratory: Bilateral crackles and coarse rhonchi, no wheezes
Cardiac: Regular Rhythm and S1/S2
GI: Soft, Nontender and Nondistended
Musculoskeletal: No Clubbing, No Cyanosis and No Edema
Neuro: Awake, Alert and Oriented, no neurological deficits
Psych: Calm
A/P:
Cough and shortness of breath with persistent bilateral interstitial infiltrates:
Differential mainly includes idiopathic interstitial pneumonia versus rheumatoid arthritis-ILD. Less likely other infectious etiology including MERS
She had previous hospitalization and full workup
Continue steroids, dexamethasone 4 mg IV every 12 hours
Continue bronchodilators
Pulmonary consult appreciated
Plan possible CT scan of the chest
Discussed with son over the phone
Rheumatoid arthritis:
Continue hydroxychloroquine 200 mg twice a day
Hypothyroidism:
Continue levothyroxine 125 mg p.o. daily
Latent TB:
Status post course of treatment in the past
DVT prophylaxis:
Heparin SQ
CODE STATUS:
Full code
Total time spent on today's encounter was 50 minutes which included time spent in counseling the patient/family regarding diagnosis and treatment plan as listed above, goals of care, and symptom management. Case was discussed with nursing staff,
specialists, and care coordinators/case management. All labs and imaging personally reviewed by me. Remainder the time spent in detailed review of previous records, lab data, imaging, and other medical provider documentation.
Anticipated Discharge: 24 - 48 hours
Subjective/Interval History
-
Date of Service: May 25, 2025
Patient still having some dry cough. Describes dyspnea. On room air. Afebrile
Objective Data
-
Labs:
Laboratory Results
05/25/25 05/25/25
07:09 08:59
WBC 10.6
Hgb 11.7 L
Hct 36.0 L
Plt Count 315
Sodium Cancelled 142
Potassium Cancelled 4.0
Chloride Cancelled 109 H
Carbon Dioxide Cancelled 25
BUN Cancelled 10
Creatinine Cancelled 0.5 L
Glucose Cancelled 152 H
Calcium Cancelled 9.0
Total Bilirubin Cancelled 0.4
AST Cancelled 24
ALT Cancelled 14
Alkaline Phosphatase Cancelled 79
Vital Signs:
Vital Signs
Temp Pulse Resp BP Pulse Ox
97.8 F 82 14 146/82 98
05/25/25 07:38 05/25/25 11:16 05/25/25 11:16 05/25/25 07:38 05/25/25 11:16
I&O
05/24/25 05/25/25 05/26/25
06:59 06:59 06:59
Intake Total 480 / 480
Balance 480 / 480
--- NOTE | 2025-05-25 12:26 | CON.PUL ---
Consultation
Consultation Request
Date/Time Consultation Requested: 05/25/2025
Date/Time Consultation Performed: 05/25/2025
Requesting Provider: Dr. Godwin
Performing Provider: Dr. Luis Eduardo Bernabe
Reason for Consultation: Hypoxemic respiratory failure-ILD
Medical History
-
Chief Complaint: Cough, dyspnea
History of Present Illness:
-
Patient is a very pleasant 64-year-old female who presents to hospital for close to 3 weeks long respiratory illness. Patient was in [place] couple of weeks ago for [place], and developed runny nose sore throat and respiratory symptoms which
she also reports that her family members had as well in March 2025.
At that time presented to the emergency room and had a chest x-ray performed followed by a CT chest which was suggestive of bilateral interstitial infiltrates suggestive of NSIP versus atypical infection. Pulmonary embolism was ruled out.
Records reviewed. Cultures negative.
Antibiotics subsequently discontinued
She was treated with a course of steroids with partial improvement.
Patient does has history of rheumatoid arthritis-connective tissue disease associated ILD cannot be ruled out.
CRP and sedimentation rate were elevated.
She is back after 1 month with worsening cough and shortness of breath.
She completed a course of prednisone.
She has not seen her ed special education teacher or bingo checker.
-
No reported hemoptysis. No reported pleuritic discomfort however patient feels that her ribs are sore from constant coughing.
There is no reports of fevers or chills.. No reported night sweats or palpable lymphadenopathy.
Currently her rheumatoid arthritis does not seem to have exacerbation and she does not report any active joint swelling or pain. No reported rash. No odynophagia. Patient has been on Plaquenil. Occasionally taking prednisone.
Social history. Patient has never smoked. She grew up in [place] and moved to [place] about 25 years ago. No reported known history of tuberculosis exposure. 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
many years ago, details not available. No reported marijuana, vaping, e-cigarettes or tobacco use.
Past Medical History
Past Medical History: Reports GERD, HTN, Hypothyroidism and Other (Upper airway cough syndrome with otherwise not specified)
Additional Past Medical History:
Rheumatoid arthritis
History of latent TB-treated
Gout
Nephrolithiasis
Past Surgical History: Reports Cholecystectomy, Orthopedic (Knee replacement) and Other (Left John-thyroidectomy)
Social History
Tobacco: Non-smoker
Alcohol: None
Drug: None
Living: With Family
Employment: Not Employed
Family History
Family History: Not pertinent
Allergies / Home Medications
Allergies reflects when Allergies were last updated in [employer].
Past Medical History
Past Medical History: Other (See assessment and plan)
Social History
Tobacco: Non-smoker
Alcohol: None
Drug: None
Living: With Family
Employment: Not Employed
Family History
Family History: Reviewed & Not Pertinent
Allergies / Home Medications
Allergies
Allergy/AdvReac Type Severity Reaction Status Date / Time
No Known Allergies Allergy Unverified 05/24/25 11:47
Home Medications
�Medication �Instructions �Recorded �Confirmed �Last Taken �Type
hydroxychloroquine 200 mg tablet 200 mg PO BID Autoimmune Disorder 04/14/25 05/24/25 05/24/25 History
levothyroxine 125 mcg tablet 125 mcg PO DAILY Thyroid 04/14/25 05/24/25 05/24/25 History
therapeutic multivitamin 1 tab PO DAILY Supplement 04/14/25 05/24/25 05/24/25 History
ascorbic acid (vitamin C) 500 mg 500 mg PO DAILY Supplement 05/24/25 05/24/25 05/24/25 History
tablet (Vitamin C)
budesonide-formoterol HFA 160 2 puff inhalation R BID 05/24/25 05/24/25 05/24/25 History
mcg-4.5 mcg/actuation aerosol Lung/Breathing Issues
inhaler
cholecalciferol (vitamin D3) 25 25 mcg PO DAILY Supplement 05/24/25 05/24/25 05/24/25 History
mcg (1,000 unit) tablet (Vitamin
D3)
omeprazole 20 mg capsule,delayed 20 mg PO DAILY Gastrointestinal 05/24/25 05/24/25 Unknown History
release Issue
zinc sulfate 50 mg zinc (220 mg) 50 mg PO DAILY Supplement 05/24/25 05/24/25 05/24/25 History
tablet
Review of Systems
-
History Source: Patient
All other systems: Negative unless noted
Vitals / Labs / Diagnostic Testing
Vital Signs
Temp Pulse Resp BP Pulse Ox
97.8 F 82 14 146/82 98
05/25/25 07:38 05/25/25 11:16 05/25/25 11:16 05/25/25 07:38 05/25/25 11:16
Lab Data
05/25/25 07:09
05/25/25 08:59
Microbiology
05/24/25 11:57 Nasal Swab Influenza Types A & B (COURT) - Final
Negative for Influenza A & B, NAAT
Negative results must be combined with clinical observations
and patient history.
Nucleic Acid Amplification test (NAAT)performed on the
[employer] ID NOW platform.
Diagnostic Testing:
Physical Exam
-
HEENT: Normocephalic
Cardiovascular: S1/S2
Respiratory: Wheeze (n) and Rales
GI: Soft and Non Distended
Neurology: Awake, Oriented and AO x 3
Skin: Warm and Good Color
General: Respiratory Distress and Comfortable
Assessment
-
65-year-old woman with past medical history noted. Discharged in March with similar complaints. Abnormal chest x-ray suggestive of ILD versus atypical infection. Treated with steroids and short course of antibiotics. Subsequently improved.
Patient completed prednisone course now with worsening cough and shortness of breath.
Chest x-ray with persistent bilateral infiltrates right greater than left. We were reconsulted for evaluation.
#1. Bilateral interstitial infiltrates concerning RA-ILD versus idiopathic interstitial pneumonia vs post inflammatory scaring post viral infex.
- Bilateral groundglass opacities noted on imaging pattern suggestive of NSIP which typically tends to be related to connective tissue diseases, drug-induced, occasionally and atypical infections.
- Relative rapidity of symptoms and other family members being sick points more towards infectious etiology. Also reported low-grade fever at home-will suspect improvement if this was viral over a month.
- During prior admission procalcitonin negative, off antibiotics now. Afebrile. No leukocytosis. No significant purulent sputum production this time.
- Prior workup: Negative HIV, CESAR negative, known history of rheumatoid arthritis. ESR elevated at 62, CRP elevated at 33.8. Urinalysis without any proteinuria or hematuria.
- Sedimentation rate remains elevated at 60.CRP 23.
- MERS,Was being considered as well . But less likely as other family member improved. Patient clinically significantly improved overall after steroids.
- Based on prior notes seems to have responded to steroids.
- Currently on room air/mainly complaining of coughing.
Will update CT chest to compare to prior.
CRP and sedimentation rate, ANCA antibodies has been ordered
Continue IV corticosteroids for now. If there is good response after discharge she will need a prolonged course of prednisone over 3 to 4 months for possible inflammatory pneumonitis.
Will obtain proBNP. If elevated echocardiogram will be needed. Suspicion for volume overload less likely.
Observe off antibiotics.
#3. Hyperactive airway disease.
Cough may be in relationship to ongoing asthma symptoms. Steroids as above.
Continue inhalers.
-During prior admission good response to corticosteroids.
- Continue Symbicort 2 puffs twice a day .
#4. Mediastinal lymphadenopathy with history of latent tuberculosis
- Patient grew up in [place]. Does not report any known exposure to active tuberculosis
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
- The calcified lymphadenopathy noted is likely sequela of prior exposure. Patient does not seem to have any upper lobe disease typical for Mycobacterium.
- Also bilateral interstitial pattern is not typical for MTB
- Patient will resume follow-up with her bingo checker as outpatient
#5. H/o RA
- Reportedly has been on Plaquenil lately and has required short courses of prednisone many times in the past due to flare which typically has joint involvement.
- No known history of RA ILD however I do not have any previous imaging to compare if some of these changes are longstanding versus acute
- As outpatient, patient will need pulmonary function testing, 6-minute walk test etc. once she recovers from acute illness
- Discussed with the patient, she reports that she will resume follow-up with her bingo checker in coming weeks.
Other medical diagnoses:
- Hypothyroidism
- HTN
- GERD
- H/o upper airway cough syndrome
Dr. Bernabe updated son over the phone- Pt follows up with Rheumatogy at [place] Dr. Schumacher and Pulmonary at [place] Dr. Carter.
ean:
-Chest x-ray 05/24/2025:
Findings compatible with interstitial lung disease. Similar compared to prior. No new abnormalities.
-
CT Chest 03/2025: 1. MODERATE to SEVERE INFLAMMATORY INTERSTITIAL PNEUMONITIS involving the periphery of both lungs in a symmetric distribution - possibly nonspecific interstitial pneumonitis (NSIP). Atypical infection or interstitial pulmonary
edema are considered unlikely.
2. Moderate subcarinal lymphadenopathy.
3. Chronic granulomatous disease infection.
4. Small hiatal hernia.
5. Previous left hemithyroidectomy.
[2025-05-25 15:30] VITALS: BP 146/74
[2025-05-25 23:09] VITALS: BP 138/70
[2025-05-26] MEDS: DECADRON 4 MG IV (01:01)
[2025-05-26] MEDS: SYNTHROID 125 MCG PO (05:25)
[2025-05-26] MEDS: SYMBICORT 160/4.5 MCG INHALER 2 PUFF INH (07:29)
[2025-05-26] MEDS: DUONEB 3 ML INH ×2 (07:29→10:57)
[2025-05-26 07:37] VITALS: BP 145/88
[2025-05-26] MEDS: HEPARIN 5000 UNITS SC (07:45)
[2025-05-26] MEDS: PLAQUENIL 200 MG PO (07:46)
[2025-05-26] MEDS: PROTONIX 40 MG PO (07:46)
[2025-05-26] MEDS: ZINC 50 MG PO (07:46)
[2025-05-26] MEDS: VITAMIN D3 (cholecalciferol) 25 MCG PO (07:46)
[2025-05-26] MEDS: VITAMIN C 500 MG PO (07:46)
[2025-05-26] MEDS: THERAGRAN 1 TABLET PO (07:46)
[2025-05-26 07:57] LABS: Hematocrit 35.9 % (37.0-47.0); Hemoglobin 11.5 g/dL (12.0-16.0); Mean Corp Hgb Conc. 32.0 g/dL (33.0-37.0); Mean Corpuscular Volume 79.8 fL (81.0-99.0); Nucleated Red Blood Cells % 0 %; Platelet Count 328 10^3/uL (130-400); Red Cell Dist. Width 13.6 % (11.5-14.5)
[2025-05-26 08:28] LABS: Blood Urea Nitrogen 14 mg/dl (7-17); Calcium 8.8 mg/dl (8.4-10.2); Carbon Dioxide 24 mmol/L (22-30); Chloride 110 mmol/L (98-107); Estimated Creatinine Clearance 94 ml/min; Glucose 130 mg/dl (70-99); Potassium 4.3 mmol/L (3.5-5.1); Sodium 141 mmol/L (135-145); eGFR > 60.00
--- NOTE | 2025-05-26 09:27 | CM ---
Addendum entered by Sonia Pritchard 05/26/25 13:20:
CM consult completed-VN
[facility] referral sent in [facility]
PLAN: home with [facility]
Fax #: [phone]
Addendum entered by Sonia Pritchard 05/26/25 12:43:
Home oxygen assessment performed by respiratory
no oxygen needs
IMM explained & signed. In chart
PLAN: home, no needs
family to transport
Original Note:
Patient seen at bedside
Home 02 assessment ordered
PLAN: Home, watch for home oxygen needs
--- NOTE | 2025-05-26 11:21 | W.PN.HOSP.TC ---
Today's Communication/Plan
-
Discharge planning
Assessment / Plan
Assessment / Plan
Physical exam:
General: Acutely ill and No Apparent Distress
HEENT: Normocephalic, Atraumatic and Moist Mucous Membranes
Respiratory: Bilateral crackles and coarse rhonchi, no wheezes
Cardiac: Regular Rhythm and S1/S2
GI: Soft, Nontender and Nondistended
Musculoskeletal: No Clubbing, No Cyanosis and No Edema
Neuro: Awake, Alert and Oriented, no neurological deficits
Psych: Calm
A/P:
Cough and shortness of breath with persistent bilateral interstitial infiltrates:
Differential mainly includes idiopathic interstitial pneumonia versus rheumatoid arthritis-ILD. Less likely other infectious etiology including MERS
She had previous hospitalization and full workup
Will switch IV steroids to oral today
Continue bronchodilators
Pulmonary consult appreciated
Plan possible CT scan of the chest
Discussed with son over the phone yesterday
Discussed with pulmonary today and she is cleared for discharge with a prolonged course of steroids taper as outpatient
Rheumatoid arthritis:
Continue hydroxychloroquine 200 mg twice a day
Hypothyroidism:
Continue levothyroxine 125 mg p.o. daily
Latent TB:
Status post course of treatment in the past
DVT prophylaxis:
Heparin SQ
CODE STATUS:
Full code
Anticipated Discharge: Today
Subjective/Interval History
-
Date of Service: May 26, 2025
She feels well. Less cough and now shortness of breath. Afebrile. She wants to go home today
Objective Data
-
Labs:
Laboratory Results
05/26/25
07:30
WBC 13.2 H
Hgb 11.5 L
Hct 35.9 L
Plt Count 328
Sodium 141
Potassium 4.3
Chloride 110 H
Carbon Dioxide 24
BUN 14
Creatinine 0.6
Glucose 130 H
Calcium 8.8
Vital Signs:
Vital Signs
Temp Pulse Resp BP Pulse Ox
97.8 F 77 16 145/88 100
05/26/25 07:37 05/26/25 10:57 05/26/25 10:57 05/26/25 07:37 05/26/25 10:57
I&O
05/25/25 05/26/25 05/27/25
06:59 06:59 06:59
Intake Total 480 / 480 600 / 600
Balance 480 / 480 600 / 600
--- NOTE | 2025-05-26 11:34 | W.PN.PUL3 ---
Today's Communication / Plan
-
Prednisone taper: 40 mg X 2 weeks, 30 mg X 2 weeks and then 20 mg until seen by pulmonary and rheumatology
Continue Symbicort
Discharge planning today
Sign off
Assessment
-
65-year-old woman with past medical history noted. Discharged in March with similar complaints. Abnormal chest x-ray suggestive of ILD versus atypical infection. Treated with steroids and short course of antibiotics. Subsequently improved.
Patient completed prednisone course now with worsening cough and shortness of breath.
Chest x-ray with persistent bilateral infiltrates right greater than left. We were reconsulted for evaluation.
#1. Bilateral interstitial infiltrates concerning RA-ILD versus idiopathic interstitial pneumonia vs post inflammatory scaring post viral infex.
- Bilateral groundglass opacities noted on imaging pattern suggestive of NSIP which typically tends to be related to connective tissue diseases, drug-induced, occasionally and atypical infections.
- Relative rapidity of symptoms and other family members being sick points more towards infectious etiology. Also reported low-grade fever at home-will suspect improvement if this was viral over a month.
- During prior admission procalcitonin negative, off antibiotics now. Afebrile. No leukocytosis. No significant purulent sputum production this time.
- Prior workup: Negative HIV, CESAR negative, known history of rheumatoid arthritis. ESR elevated at 62, CRP elevated at 33.8. Urinalysis without any proteinuria or hematuria.
- Sedimentation rate remains elevated at 60.CRP 23.
-proBNP normal makes heart failure less likely.
- MERS,Was being considered as well . But less likely as other family member improved. Patient clinically significantly improved overall after steroids.
- Based on prior notes seems to have responded to steroids.
- Currently on room air/mainly complaining of coughing.
CT chest 05/25/2025: Bilateral interstitial changes. No significant groundglass opacity. No honeycombing. No pleural effusion. No pericardial effusion. Slightly worse compared to prior.
CRP and sedimentation rate, ANCA antibodies has been ordered
Transition to prednisone 40 mg for 2 weeks, then 30 mg for 2 weeks and then 20 mg until seen by her truck greaser/photolithographic stripper.
No indication for antibiotics
#3. Hyperactive airway disease.
Cough may be in relationship to ongoing asthma symptoms. Steroids as above.
Continue inhalers.
Not bronchospastic on exam.
- Continue Symbicort 2 puffs twice a day .
#4. Mediastinal lymphadenopathy with history of latent tuberculosis
- Patient grew up in [place]. Does not report any known exposure to active tuberculosis
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
- The calcified lymphadenopathy noted is likely sequela of prior exposure. Patient does not seem to have any upper lobe disease typical for Mycobacterium.
- Also bilateral interstitial pattern is not typical for MTB
- Patient will resume follow-up with her photolithographic stripper as outpatient
#5. H/o RA
- Reportedly has been on Plaquenil lately and has required short courses of prednisone many times in the past due to flare which typically has joint involvement.
- No known history of RA ILD however I do not have any previous imaging to compare if some of these changes are longstanding versus acute
- Symptoms respond to steroids.
No prior CAT scans to review-this will need to be addressed by rheumatology and decide on whether further immunomodulation will be necessary.
Other medical diagnoses:
- Hypothyroidism
- HTN
- GERD
- H/o upper airway cough syndrome
Dr. Bernabe updated son over the phone 05/25/2025- Pt follows up with Rheumatogy at [place] Dr. Schumacher and Pulmonary at [place] Dr. Carter.
Dr. Bernabe again discussed with son extensively via phone on 05/26/2025. I instructed him to cherry picker operator CDs with images of the chest to review with her photolithographic stripper and truck greaser in the outpatient setting.
Discussed with primary team extensively as well as patient. Okay to discharge with prednisone taper and close follow-up with pulmonary and rheumatology.
Data reviewed:
-Chest x-ray 05/24/2025:
Findings compatible with interstitial lung disease. Similar compared to prior. No new abnormalities.
-
CT Chest 03/2025: 1. MODERATE to SEVERE INFLAMMATORY INTERSTITIAL PNEUMONITIS involving the periphery of both lungs in a symmetric distribution - possibly nonspecific interstitial pneumonitis (NSIP). Atypical infection or interstitial pulmonary
edema are considered unlikely.
2. Moderate subcarinal lymphadenopathy.
3. Chronic granulomatous disease infection.
4. Small hiatal hernia.
5. Previous left hemithyroidectomy.
Total time spent today was 40 minutes for this encounter. Time includes reviewing laboratory test/imaging results, reviewing pertinent medical records, obtaining and reviewing medical history, performing an appropriate exam, ordering medications,
tests and procedures. Time also includes documentation of this encounter, coordinating patient care and communicating with other healthcare professionals. Total time does not include separately billed tests performed on this date of service.
Subjective Data
-
Date of Service:
Date of Service: May 26, 2025
Chief Complaint: Pulmonary Follow Up (Interstitial lung disease)
Subjective:
Patient feels better, asking to go home.
Denies hemoptysis or phlegm production
No oxygen requirement
Review of Systems
Cardiopulmonary: Dyspnea (Improved) and Cough (Improved)
Objective Data
Data Reviewed
Vital Signs / I&O / Oxygen:
Vital Signs
Temp Pulse Resp BP Pulse Ox
97.8 F 77 16 145/88 100
05/26/25 07:37 05/26/25 10:57 05/26/25 10:57 05/26/25 07:37 05/26/25 10:57
Intake and Output
05/25/25 05/26/25 05/27/25
06:59 06:59 06:59
Intake Total 480 / 480 600 / 600
Balance 480 / 480 600 / 600
SaO2 100
Physical Exam
General: Comfortable
HEENT: Normocephalic
Cardiovascular: S1-S2
Respiratory: Wheeze (n) and Crackles
GI: Soft and Non Distended
Neurology: Awake, AO x 3 and No Motor Deficits
Skin: Warm
Labs/Micro/Reports
Lab Data
05/26/25 07:30
05/26/25 07:30
Microbiology
05/24/25 11:57 Nasal Swab Influenza Types A & B (COURT) - Final
Negative for Influenza A & B, NAAT
Negative results must be combined with clinical observations
and patient history.
Nucleic Acid Amplification test (NAAT)performed on the
[employer] platform.
--- NOTE | 2025-05-26 11:43 | W.DCSUMMARY ---
Discharge Summary
Discharge Data
Date of Admission: 05/24/25
Date of Discharge: 05/26/25
Total time spent discharging patient (in min): 33
-
Pending Results: No
Hospital Course
Patient is 65 years old female with multiple comorbidities including rheumatoid arthritis came into the hospital with shortness of breath cough and interstitial findings on x-ray. Patient had a recent hospitalization for similar events and she was
treated with a course of steroids with partial improvement but upon discontinuation of steroids patient got worse again. Pulmonary was consulted. She was started on IV steroids again. She had a CT scan of the chest that shows interstitial lung
disease. Patient did well on the steroids. She remained afebrile and she did not require any antibiotics. It was felt that she will require longer course of steroids and a close follow-up with vice president of recruiting and editor map as outpatient.
Pulmonary cleared her for discharge. She will be placed on a longer course of steroids with close follow-up with specialist as mentioned. Otherwise, patient is hemodynamically stable, afebrile, on room air and she is feeling symptomatically much
improved. She will be discharged in stable condition today.
Discharge duration: 33 minutes
Discharge Plan
-
Patient Disposition: Home (Routine Discharge)
Discharge Diagnosis/Procedures: Suspected interstitial lung disease. Hypothyroidism. Rheumatoid arthritis.
Diet: Low Cholesterol
Activity: As tolerated
Blood Work: Please PCP to order CBC, BMP within 1 week
Referrals:
Luis Eduardo Foy MD [Active, Pulmonary Medicine] - in two to four weeks
Manny Orellana DO [Family Provider, Family Practice] - in less than 1 week
Additional Discharge Medication Instructions: Take prednisone 40 mg once a day for 2 weeks then 30 mg once a day for 2 more weeks and finally 20 mg once a day for the last 2 more weeks. Discussed with your vice president of recruiting and editor map if
prednisone will be continued.
Prescriptions:
New
prednisone 20 mg Tablet
40 mg PO DAILY 14 Days Qty: 28 0RF
prednisone 20 mg tablet
20 mg PO DAILY 28 Days Qty: 28 0RF
Rx Instructions:
Start on 06/10. 30 mg for 2 weeks followed by 20 mg for 2 more weeks.
Continued
therapeutic multivitamin Tablet
1 tab PO DAILY
levothyroxine 125 mcg Tablet
125 mcg PO DAILY
hydroxychloroquine 200 mg Tablet
200 mg PO BID
budesonide-formoterol 160-4.5 mcg/actuation HFA aerosol inhaler
2 puff inhalation R BID
zinc sulfate 50 mg zinc (220 mg) Tablet
50 mg PO DAILY
ascorbic acid (vitamin C) [Vitamin C] 500 mg Tablet
500 mg PO DAILY
cholecalciferol (vitamin D3) [Vitamin D3] 25 mcg (1,000 unit) Tablet
25 mcg PO DAILY
omeprazole 20 mg Capsule,Delayed Release(Dr/Ec)
20 mg PO DAILY
Discharge Orders:
Discharge Patient (As Directed); Ordered 05/26/25
Ordered By: Alexis Coon
Discharge Date and Time
Discharge Date/Time: 05/26/25 13:13
Print Language: SWAZI
[2025-05-26] MEDS: DELTASONE 40 MG PO (11:52)
[2025-05-26 12:53] VITALS: BP 143/96
[2025-05-28 17:19] LABS: Serine Protease-3, IgG 0 AU/mL (0-19)
== END 2025-05-26 13:13 | disposition home health service (06) | DRG 198 ==
LOC: 3 WEST ACU 15:32
PROVIDERS: Emergency Medicine; Internal Medicine Critical Care Medicine; ADMITTING PHYSICIAN Hospitalist; ATTENDING PHYSICIAN Hospitalist; CONSULT PHYSICIAN Internal Medicine; EMERGENCY PHYSICIAN Emergency Medicine; FAMILY PHYSICIAN Family Medicine Geriatric Medicine
DX: J84.89 Other specified interstitial pulmonary diseases (principal); J45.909 Unspecified asthma, uncomplicated; M06.9 Rheumatoid arthritis, unspecified; E89.0 Postprocedural hypothyroidism; M10.9 Gout, unspecified; R09.02 Hypoxemia; R59.0 Localized enlarged lymph nodes; I10 Essential (primary) hypertension; K21.9 Gastro-esophageal reflux disease without esophagitis; D64.9 Anemia, unspecified; Z11.52 Encounter for screening for COVID-19; Z86.15 Personal history of latent tuberculosis infection; Z79.52 Long term (current) use of systemic steroids
CPT/HCPCS: 71046; 71250; 80048; 80053; 83516; 83880; 85025; 85652; 86140; 87502; 87811; 94640; 96374; 99285